=== PATIENT | female | born 1965 | race Caucasian/White ===

== ENCOUNTER → 2019-09-14 | Outpatient (CLI) | payer OTHER ==
--- NOTE | 2019-09-18 06:03 | PE ---
EXAMINATION TYPE: PET CT fusion skull to thigh DATE OF EXAM: 09/14/2019 COMPARISON: Outside chest CT August 31, 2019. HISTORY: Solitary pulmonary nodule left lung TECHNIQUE: Following the intravenous administration of 12.27 mCi of F-18 FDG, whole body images are performed from the skull base to the midthigh. Images are reviewed on the computer in the coronal, a xial, and sagittal planes. Reconstructed rotating images are created on independent workstation and reviewed on the computer. A noncontrast CT is performed in conjunction with the PET scan. SCAN: Initial Scan FINDINGS: SKULL BASE AND NECK: No areas of abnormal hypermetabolic uptake. CHEST, MEDIASTINUM, AND HILAR REGION: Redemonstration of 4 mm left upper lobe nodule laterally axial image 69 without hypermetabolic uptake. Stable size inferior 8 x 7 mm left upper lobe nodule that is ametabolic axial image 79. No areas of abnormal hypermetabolic uptake. ABDOMEN AND PELVIS: No areas of abnormal hypermetabolic uptake. OSSEOUS STRUCTURES: There is no abnormal hypermetabolic uptake. OTHER CT: Cholecystectomy clips are present. Coronary artery calcaneus is redemonstrated which is not ed marker for underlying coronary artery disease. Simple thin-walled cyst right hepatic lobe axial im age 89 noted. IMPRESSION: No suspicious hypermetabolic uptake to suggest malignancy. Short-term follow-up CT in 6-1 2 months time advised to document stability of lung nodules.
== END | disposition home or self-care (01) ==
LOC: RADPETMAIN 13:53
PROVIDERS: ATTEND Family Medicine
DX: R91.1 Solitary pulmonary nodule (principal)
CPT/HCPCS: 78815; A9552

== ENCOUNTER 2019-10-08 14:02 | Observation (INO) | payer OTHER ==
[2019-10-08] MEDS ORDERED: PANTOPRAZOLE 40 MG/10 ML VIAL IVP SCH (15:00)
[2019-10-08] MEDS: SODIUM CHLORIDE 0.9% 1,000 ML IV SCH (15:30)
[2019-10-08 15:46] LABS: Basophils # (A) 0.1 k/uL (0-0.2); Basophils % (A) 1 %; Eosinophils # (A) 0.1 k/uL (0-0.7); Eosinophils % (A) 1 %; HCT 35.8 % (34.0-46.0); HGB 12.3 gm/dL (11.4-16.0); Lymphocytes # (A) 2.4 k/uL (1.0-4.8); Lymphocytes % (A) 27 %; MCH 30.3 pg (25.0-35.0); MCHC 34.3 g/dL (31.0-37.0); MCV 88.3 fL (80.0-100.0); Mean Platelet Volume 8.1; Monocytes # (A) 0.9 k/uL (0-1.0); Monocytes % (A) 10 %; Neutrophils # (A) 5.4 k/uL (1.3-7.7); Neutrophils % (A) 61 %; Platelet Count 109 k/uL (150-450); RBC 4.06 m/uL (3.80-5.40); RDW 12.8 % (11.5-15.5); WBC 8.8 k/uL (3.8-10.6)
[2019-10-08] MEDS: HYDROmorphone 0.5 MG/0.5 ML SYRINGE IVP PRN ×2 (15:54→20:02)
[2019-10-08 16:01] LABS: African American GFR (CKD) >90 (>60 ml/min/1.73 sqM); Anion Gap 7 mmol/L; Blood Urea Nitrogen 23 mg/dL (7-17); Calcium 10.1 mg/dL (8.4-10.2); Carbon Dioxide 26 mmol/L (22-30); Chloride 106 mmol/L (98-107); Glucose 89 mg/dL (74-99); Non-African American GFR(CKD) >90 (>60 ml/min/1.73 sqM); Potassium 3.8 mmol/L (3.5-5.1); Sodium 139 mmol/L (137-145)
[2019-10-08 16:14] LABS: Hypochromasia (M) Present
[2019-10-08] MEDS: CYCLOBENZAPRINE 10 MG TAB PO PRN (16:58)
[2019-10-08] MEDS: ALPRAZolam 0.25 MG TAB PO PRN (20:02)
[2019-10-08] MEDS: AMITRIPTYLINE HCL 10 MG TAB PO SCH (21:15)
[2019-10-09] MEDS ORDERED: HYDROmorphone 0.5 MG/0.5 ML SYRINGE ONE ×2 (00:37)
[2019-10-09] MEDS: methylPREDNISolone SOD SUCCI 40 MG/ML 1 ML VIAL IV SCH ×3 (05:35→15:50)
--- NOTE | 2019-10-09 06:05 | XR ---
EXAM: XR Lumbosacral Spine, 2 or 3 Views CLINICAL HISTORY: Lumbar DDD TECHNIQUE: Frontal and lateral views of the lumbar spine and sacrum. COMPARISON: No relevant prior studies available. FINDINGS: Vertebrae: Unremarkable. No acute fracture. Normal alignment. Sacrum/coccyx: Unremarkable as visualized. No acute fracture. Disc spaces: No acute findings. No significant narrowing. Soft tissues: Unremarkable. IMPRESSION: Normal lumbar spine x-rays.
--- NOTE | 2019-10-09 06:07 | CT ---
EXAM: CT Abdomen and Pelvis Without Intravenous Contrast CLINICAL HISTORY: Patient presents with RLQ pain. TECHNIQUE: Axial computed tomography images of the abdomen and pelvis without intravenous contrast. CTDI is 4.5 mGy and DLP is 222.1 mGy-cm. This CT exam was performed using one or more of the following dose reduction techniques: automated exposure control, adjustment of the mA and/or kV according to patient size, and/or use of iterative reconstruction technique. COMPARISON: No relevant prior studies available. FINDINGS: Lung bases: Unremarkable. No mass. No consolidation. ABDOMEN: Liver: Unremarkable. Gallbladder and bile ducts: Gallbladder surgically absent. No calcified stones. No ductal dilation. Pancreas: Unremarkable. No ductal dilation. Spleen: Unremarkable. No splenomegaly. Adrenals: Unremarkable. No mass. Kidneys and ureters: Unremarkable. No obstructing stones. No hydronephrosis. Stomach and bowel: Unremarkable. No obstruction. No mucosal thickening. PELVIS: Appendix: No findings to suggest acute appendicitis. Bladder: Unremarkable. No stones. Reproductive: Unremarkable as visualized. ABDOMEN and PELVIS: Intraperitoneal space: Unremarkable. No free air. No significant fluid collection. Bones/joints: No acute fracture. No dislocation. Soft tissues: Unremarkable. Vasculature: Unremarkable. No abdominal aortic aneurysm. Lymph nodes: Unremarkable. No enlarged lymph nodes. IMPRESSION: No acute abnormality demonstrated in the abdomen or pelvis
[2019-10-09] MEDS: MULTIVITAMINS, THERA 1 EACH TAB PO SCH ×2 (08:28→08:35)
[2019-10-09] MEDS: LACTOBACILLUS ACIDOPH & BULGAR 1 EACH PACKET PO SCH ×2 (08:28→08:35)
[2019-10-09] MEDS: TERBINAFINE 250 MG TAB PO SCH (08:28)
[2019-10-09] MEDS: PANTOPRAZOLE 40 MG TABLET PO SCH (08:28)
[2019-10-09] MEDS: HYDROmorphone 0.5 MG/0.5 ML SYRINGE IVP PRN ×4 (08:29→20:46)
[2019-10-09] MEDS ORDERED: NON FORMULARY DRUG (Biotin [Biotin] 5 MG) PO SCH (09:00)
--- NOTE | 2019-10-09 09:14 | P.CNOR ---
History of Present Illness - [facility] Consult date: 10/09/19 Requesting physician: Pito Quinn Consult reason: low back pain, other (Right lower extremity radiculopathy) History of present illness: Patient is a very pleasant 53-year-old female who is seen and examined at bedside for further evaluation for intractable low back pain and right lower extremity radiculopathy. She was direct admitted by her primary care provider Dr. Pito Quinn. Patient states approximately week and a half ago she began to experience some increased back pain with right lower extremity radiculopathy. She states she has a history of previous laminectomy performed by Dr. Allen approximately 6 years ago but is unsure of the level. She states the pain she currently feels is significantly worse than the pain she was experiencing prior to that surgical intervention. She states she tried using a lidocaine patch couple days ago for pain control which did help control her pain while active but she increased activities at that time further exacerbating her symptoms. She states she does have some sensitivity to palpation over her lumbar spine. She has pain radiating from the lumbar spine, towards the right hip, down the lateral thigh towards the right knee. She feel some weakness due to pain in her right lower extremity. She also feels some pain radiating to his right groin. She states she has only voided once in the past 48 hours. She is on IV fluids. She is not experiencing significant abdominal pain or bladder pain. She has not recently had a bowel movement. She denies any left lower extremity weakness or radiculopathy. Patient states she did recently have a PET scan performed due to left upper lobe lung nodule. No evidence of metastatic disease was found at that time. She states her currently planning to watch the nodule follow-up evaluation approximate 4-6 months. She feels she may seek further evaluation in regards to this nodule as she may want it removed. Past Medical History Past Medical History: GERD/Reflux, Hyperlipidemia Additional Past Medical History / Comment(s): recent PET scan History of Any Multi-Drug Resistant Organisms: None Reported Past Surgical History: Cholecystectomy, Hysterectomy, Orthopedic Surgery Additional Past Surgical History / Comment(s): bilateral breast lumps removed- benign, knee surgery, back surgery Past Anesthesia/Blood Transfusion Reactions: No Reported Reaction Past Psychological History: No Psychological Hx Reported Smoking Status: Never smoker Medications and Allergies Home Medications Medication Instructions Recorded Confirmed Type ALPRAZolam [Xanax] 0.25 mg PO BID PRN 10/08/19 10/08/19 History Amitriptyline HCl [Elavil] 10 mg PO HS 10/08/19 10/08/19 History Biotin 5 mg PO DAILY 10/08/19 10/08/19 History Cyclobenzaprine [Flexeril] 10 mg PO BID PRN 10/08/19 10/08/19 History L.acidoph,Paracasei, B.lactis 1 cap PO DAILY 10/08/19 10/08/19 History [Probiotic] Multivitamins, Thera [Multivitamin 1 tab PO DAILY 10/08/19 10/08/19 History (formulary)] Omeprazole 40 mg PO DAILY 10/08/19 10/08/19 History Terbinafine [LamISIL] 250 mg PO DAILY 10/08/19 10/08/19 History traMADol HCL 50 mg PO DAILY PRN 10/08/19 10/08/19 History Allergies Allergy/AdvReac Type Severity Reaction Status Date / Time Penicillins Allergy Rash/Hives Verified 10/08/19 15:15 Physical Examination Physical exam: Patient is awake, alert, and oriented 3 Vital signs stable Good chest excursion with deep inspiration and expiration Abdomen soft nontender Examination of lumbar spine reveals skin is intact with no abrasions, lacerations, or bruises; no erythema, purulence or signs of infection Significant pain with palpation over the lower lumbar spine and towards the right hip Evidence of a small well-healed incision of the lower lumbar spine Dorsiflexion, plantarflexion, and extensor hallucis longus positive sustained bilaterally Active forward range of motion left lower extremity without difficulty Increased low back pain with dorsiflexion and plantarflexion on the right No lower extremity hyperreflexia bilaterally Positive Lasegue's test on the right No signs or symptoms of DVT; no calf pain No pain with internal and external rotation of the hips bilaterally Neurovascularly intact Results Pertinent studies: X-rays of the lumbosacral spine taken on 10/08/2019: Overall alignment appears to maintain; no evidence of fracture dislocation within the lumbar spine; no evidence of instability or spondylolisthesis; intervertebral disc space appears to be fairly well maintained CT of the abdomen and pelvis reviewed for orthopedic purposes taken on 10/08/2019: There may be evidence of disc herniation at L3-4 and/or L4-5 resulting in foraminal and central stenosis but would be better visualized with alumbar MRI; Overall alignment appears to maintain; no evidence of fracture or dislocation within the lumbar spine; no evidence of instability or spondylolisthesis; intervertebral disc space appears to be fairly well maintained other than L4-5 asymmetric degenerative disc PET scan performed on 09/17/2019: No suspicious her metabolic uptake to suggest malignancy; short-term follow-up CT in 6-12 months advised to document stability of lung nodules - Labs Labs: Abnormal Lab Results - Last 24 Hours (Table) 10/08/19 10/08/19 Range/Units 15:25 15:25 Plt Count 109 L (150-450) k/uL BUN 23 H (7-17) mg/dL H & H 10/08/19 Range/Units 15:25 Hgb 12.3 (11.4-16.0) gm/dL Hct 35.8 (34.0-46.0) % Result Diagrams: 10/08/19 15:25 10/08/19 15:25 Assessment and Plan Assessment: Assessment: Intractable back pain Right lower extremity radiculopathy L4-5 asymmetric degenerative disc disease L3-4 and L4-5 possible herniated nucleus pulposus with central canal and neural foraminal stenosis History of previous lumbar surgery Possible urinary retention Left upper lobe lung nodules (1) Intractable low back pain Current Visit: Yes Status: Acute Code(s): M54.5 - LOW BACK PAIN SNOMED Code(s): 71861150611151516 (2) Lumbar back pain with radiculopathy affecting right lower extremity Current Visit: Yes Status: Acute Code(s): M54.16 - RADICULOPATHY, LUMBAR REGION SNOMED Code(s): 055488573 (3) History of lumbar surgery Current Visit: Yes Status: Acute Code(s): Z98.890 - OTHER SPECIFIED POSTPROCEDURAL STATES SNOMED Code(s): 838214941 (4) Lung nodules Current Visit: Yes Status: Acute Code(s): R91.8 - OTHER NONSPECIFIC ABNORMAL FINDING OF LUNG FIELD SNOMED Code(s): 776157183 (5) Urinary retention Current Visit: Yes Status: Acute Code(s): R33.9 - RETENTION OF URINE, UNSPECIFIED SNOMED Code(s): 663648227 (6) Lumbar disc herniation with radiculopathy Current Visit: Yes Status: Acute Code(s): M51.16 - INTERVERTEBRAL DISC DISORDERS W RADICULOPATHY, LUMBAR REGION SNOMED Code(s): 274978190 (7) Lumbar degenerative disc disease Current Visit: Yes Status: Acute Code(s): M51.36 - OTHER INTERVERTEBRAL DISC DEGENERATION, LUMBAR REGION SNOMED Code(s): 01490801 Plan: Plan: 1. After physical examination the patient, further discussion with the patient, and reviewing available imaging, we'll currently planned to obtain an MRI of lumbar spine with and without contrast for further evaluation. Patient does have a history of previous lumbar surgery. She's been experiencing intractable low back pain and debilitating right lower extremity radiculopathy over the past week and a half. She has increased weakness with right lower extremity due to pain. She has also had difficulty with urination with past 48 hours. We will order the lumbar MRI and will follow up with his results and discuss further treatment options. 2. We'll also plan for bladder scan to check for residual urine as patient is currently receiving IV fluid bolus and has only urinated once over the past 48 hours 3. Patient currently waiting for consultation pain management Time with Patient: Greater than 30 (Including obtaining history, physical examin ation, reviewing of imaging, and dictation.)
[2019-10-09] MEDS: ALPRAZolam 0.25 MG TAB PO PRN ×2 (10:35→20:46)
[2019-10-09] MEDS: CYCLOBENZAPRINE 10 MG TAB PO PRN (11:28)
[2019-10-09 12:32] LABS: ALT 22 U/L (9-52); AST 23 U/L (14-36); African American GFR (CKD) >90 (>60 ml/min/1.73 sqM); Albumin 4.1 g/dL (3.5-5.0); Alkaline Phosphatase 41 U/L (38-126); Anion Gap 9 mmol/L; Blood Urea Nitrogen 27 mg/dL (7-17); Calcium 9.7 mg/dL (8.4-10.2); Carbon Dioxide 24 mmol/L (22-30); Chloride 107 mmol/L (98-107); Glucose 114 mg/dL (74-99); Non-African American GFR(CKD) >90 (>60 ml/min/1.73 sqM); Potassium 4.2 mmol/L (3.5-5.1); Sodium 140 mmol/L (137-145); Total Bilirubin 0.5 mg/dL (0.2-1.3); Total Protein 6.8 g/dL (6.3-8.2)
[2019-10-09 12:43] LABS: Basophils % (A) 0 %; Eosinophils % (A) 0 %; HCT 38.5 % (34.0-46.0); HGB 12.8 gm/dL (11.4-16.0); Lymphocytes # (A) 0.8 k/uL (1.0-4.8); Lymphocytes % (A) 10 %; MCH 30.1 pg (25.0-35.0); MCHC 33.1 g/dL (31.0-37.0); MCV 90.7 fL (80.0-100.0); Monocytes # (A) 0.1 k/uL (0-1.0); Monocytes % (A) 2 %; Neutrophils # (A) 7.4 k/uL (1.3-7.7); Neutrophils % (A) 87 %; Platelet Count 213 k/uL (150-450); RBC 4.25 m/uL (3.80-5.40); RDW 12.9 % (11.5-15.5); WBC 8.5 k/uL (3.8-10.6)
--- NOTE | 2019-10-09 12:57 | HP ---
HISTORY AND PHYSICAL A 53-year-old white female admitted with a retractable low back pain, right lower extremity radiculopathy, unable to move her right leg. She is crying. She is in severe pain, 10/10. She has history of a previous laminectomy about [address] Allen[address] She is unable to control her pain, despite pain medications and she is unable to move. She is in a wheelchair. She is crying. She has lung nodules with a negative PET scan recently. PAST MEDICAL HISTORY: GERD, dyslipidemia, lumbar discectomy, benign breast disease, back surgery. HOME MEDICINES: She takes Xanax 0.25 b.i.d., Elavil 10 q.h.s., Flexeril 10 b.i.d., multivitamins, omeprazole 40 daily, Lamisil 250 daily, tramadol 50 daily. ALLERGIES: PENICILLIN. PHYSICAL EXAM: Vital signs are reviewed. PSYCH: She is anxious, nervous, crying. LUNGS: Show mild wheeze x4. CARDIOVASCULAR: S1, S2. She has positive straight leg raise test on the right side and the left side. She has hyper-reflexividity bilaterally. X-rays are ordered of the CT scan of the abdomen and pelvis were ordered for right lower quadrant abdominal pain, which were all negative. PET scan was all normal. Also, labs were reviewed. ASSESSMENT: Irretractable back pain, right lower extremity radiculopathy, L4-L5 degenerative disc disease with possible herniated disc. MRI is pending. Previous lumbar surgery, left upper lobe lung nodules, benign, nicotine addiction, urinary retention, anxiety, await for epidural lumbar injection [facility] for lumbar injections prior to going home. Please see further orders. MMODL / IJN: [id number] /
--- NOTE | 2019-10-09 14:56 | MR ---
EXAMINATION TYPE: MR lumbar spine wo/w con DATE OF EXAM: 10/09/2019 COMPARISON: Plain film 10/08/2019 HISTORY: intractable LBP, right LE radiculopathy TECHNIQUE: Multiplanar, multisequence images of the lumbar spine were acquired utilizing 5.5 mL intravenous Gada vist gadolinium contrast. L1-L2: Normal disc appearance without desiccation. No herniation, protrusion or disc bulging. No ca nal stenosis is present. Foramina are patent bilaterally. L2-L3: Normal disc appearance without desiccation. No herniation, protrusion or disc bulging. No ca nal stenosis is present. Foramina are patent bilaterally. L3-L4: Circumferential posterior disc bulge causes anterior mass effect on the thecal sac. No signifi cant foraminal encroachment. L4-L5: There is a focus of intermediate signal on T1, low signal on T2-weighted sequences in the righ t posterior paracentral location causing anterior mass effect on the thecal sac at the level of the i nferior aspect of the L4 vertebral body perhaps extending from the disc space level. Some peripheral enhancement is present following contrast administration with persistent intermediate low signal at t his level. Possible mass effect on the proximal right nerve root. Circumferential disc bulge extends laterally to cause some minimal encroachment on the foramina. Mild anterior mass effect on the thecal sac at the level of the disc space. There is some facet arthropathy change. L5-S1: There are facet arthropathy changes present. No evident disc herniation. No neural foraminal e ncroachment. Lumbar segments are intact. No paraspinal masses are identified. Conus medullaris has a normal appe arance. There is multilevel spondylosis. No significant spinal stenosis. Lumbar vertebral bodies show preserved height and alignment. There is endplate marrow signal change, loss of disc height signal i s present greatest at L4-5 also present at L3-4. Suspect partial sacralization L5. IMPRESSION: Suspect a sequestered disc fragment is present posterior to the L4 vertebral body inferior aspect pos sibly extending from the L4-5 disc space, correlate with plain film prior to any intervention. There is multilevel facet arthropathy, degenerative disc disease as described.
[2019-10-09 18:47] LABS: Appearance,Urine Clear (Clear); Bilirubin,Urine Negative (Negative); Blood,Urine Negative (Negative); Color,Urine Yellow; Glucose,Urine (UA) Negative (Negative); Hyaline Casts,Urine 1 /lpf (0-2); Ketones,Urine Negative (Negative); Leukocyte Esterase,Urine Large (Negative); Mucus,Urine Rare /hpf; Nitrite,Urine Negative (Negative); PH, Urine 6.5 (5.0-8.0); Protein,Urine Negative (Negative); RBC,Urine 1 /hpf (0-5); Specific Gravity,Urine 1.026 (1.001-1.035); Squamous Epithelial Cell,Urine 4 /hpf (0-4); Urobilinogen,Urine <2.0 mg/dL (<2.0); WBC,Urine 22 /hpf (0-5)
[2019-10-09] MEDS: SODIUM CHLORIDE 0.9% 1,000 ML IV SCH (20:48)
[2019-10-09] MEDS: LEVOFLOXACIN 500 MG TAB PO SCH ×2 (21:47→21:48)
[2019-10-09] MEDS: traMADol 50 MG TAB PO PRN (22:32)
[2019-10-10] MEDS: AMITRIPTYLINE HCL 10 MG TAB PO SCH ×2 (00:25→20:34)
[2019-10-10] MEDS: methylPREDNISolone SOD SUCCI 40 MG/ML 1 ML VIAL IV SCH ×4 (01:34→23:45)
[2019-10-10] MEDS: CYCLOBENZAPRINE 10 MG TAB PO PRN (02:29)
[2019-10-10] MEDS: HYDROmorphone 0.5 MG/0.5 ML SYRINGE IVP PRN ×3 (02:30→06:14)
[2019-10-10] MEDS: METOCLOPRAMIDE 5 MG/ML 2 ML VIAL IVP PRN ×3 (06:42→20:39)
[2019-10-10] MEDS: SODIUM CHLORIDE 0.9% 1,000 ML IV SCH (06:44)
[2019-10-10] MEDS: MULTIVITAMINS, THERA 1 EACH TAB PO SCH (08:57)
[2019-10-10] MEDS: PANTOPRAZOLE 40 MG TABLET PO SCH (08:57)
[2019-10-10] MEDS: TERBINAFINE 250 MG TAB PO SCH (08:58)
[2019-10-10] MEDS: LACTOBACILLUS ACIDOPH & BULGAR 1 EACH PACKET PO SCH (08:58)
[2019-10-10] MEDS: HYDROmorphone 1 MG/ML 1 ML SYRINGE IVP PRN ×4 (10:45→22:23)
[2019-10-10 11:35] LABS: Glucose,Whole Blood 125 mg/dL (75-99)
[2019-10-10] MEDS: INSULIN ASPART (NovoLOG) 100 UNIT/ML VIAL SQ SCH ×3 (12:48→20:34)
--- NOTE | 2019-10-10 13:39 | US ---
EXAMINATION TYPE: US renals and bladder DATE OF EXAM: 10/10/2019 COMPARISON: MRI lumbar spine from yesterday. CT abdomen and pelvis 2 days ago. CLINICAL HISTORY: back pain, uti . Right flank pain. Patient states just being diagnosed with renal infection. EXAM MEASUREMENTS: Right Kidney: 10.2 x 4.8 x 3.4 cm Left Kidney: 9.2 x 4.8 x 4.9 cm Right Kidney: No hydronephrosis or masses seen Left Kidney: No hydronephrosis or masses seen Bladder: distended, anechoic Bilateral Jets seen There is no evidence for hydronephrosis at this point in time. No nephrolithiasis is seen. No trey s are identified. Slight increased cortical echogenicity bilaterally. The urinary bladder is satisfac torily distended. Bilateral ureteral jets are seen. IMPRESSION: No hydronephrosis or suspicious abnormality.
--- NOTE | 2019-10-10 14:48 | P.PN ---
<Leonides Gastelum - Last Filed: 10/10/19 14:41> Progress Note - Text Progress Note Date: 10/10/19 Patient is a very pleasant 53-year-old female who is seen and examined at bedside for follow-up evaluation for intractable low back pain and right lower extremity radiculopathy. Since being seen and examined yesterday she has had an MRI of lumbar spine. This MRI has been reviewed by myself and Dr. Vahe Cardoso. She was direct admitted by her primary care provider Dr. Pito Quinn. Patient states approximately week and a half ago she began to experience some increased back pain with right lower extremity radiculopathy. She states she has a history of previous laminectomy performed by Dr. Allen approximately 6 ye ars ago but is unsure of the level. Since being seen exam yesterday, she has not had any significant improvement of her symptoms. She states the pain she currently feels is significantly worse than the pain she was experiencing prior to that surgical intervention. She states she tried using a lidocaine patch couple days ago for pain control which did help control her pain while active but she increased activities at that time further exacerbating her symptoms. She states she does have some sensitivity to palpation over her lumbar spine. She has pain radiating from the lumbar spine, towards the right hip, down the lateral thigh towards the right knee. She is experiencing right-sided flank pain as well. She feel some weakness due to pain in her right lower extremity. She also feels some pain radiating to his right groin. She has had some difficulty with voiding. She has been diagnosed with urinary tract infection and is currently on Levaquin. She states she is currently having further evaluation for possible kidney infection. She denies any left lower extremity weakness or radiculopathy. Patient states she did recently have a PET scan performed due to left upper lobe lung nodule. No evidence of metastatic disease was found at that time. She states her currently planning to watch the nodule follow-up evaluation approximate 4-6 months. She feels she may seek further evaluation in regards to this nodule as she may want it removed. Physical exam: Patient is awake, alert, and oriented 3 Vital signs stable Good chest excursion with deep inspiration and expiration Abdomen soft nontender Examination of lumbar spine reveals skin is intact with no abrasions, lacerations, or bruises; no erythema, purulence or signs of infection Significant pain with palpation over the lower lumbar spine and towards the right hip Evidence of a small well-healed incision of the lower lumbar spine Dorsiflexion, plantarflexion, and extensor hallucis longus positive sustained bilaterally Active forward range of motion left lower extremity without difficulty Increased low back pain with dorsiflexion and plantarflexion on the right No lower extremity hyperreflexia bilaterally Positive Lasegue's test on the right No signs or symptoms of DVT; no calf pain No pain with internal and external rotation of the hips bilaterally Neurovascularly intact Pertinent studies: MRI lumbar spine taken with and without contrast on 10/09/2019: L3-4 circumferential disc bulge; L4-5 right paracentral disc herniation with some ce phalad migration behind the L4 vertebral body, degenerative disc disease and facet arthropathy resulting in anterior mass effect of the thecal sac and possible mass effects on the proximal right nerve root; L5-S1 facet arthropathy; no evidence of significant spinal canal stenosis; no evidence of vertebral body compression fracture; X-rays of the lumbosacral spine taken on 10/08/2019: Overall alignment appears to maintain; no evidence of fracture dislocation within the lumbar spine; no evidence of instability or spondylolisthesis; intervertebral disc space appears to be fairly well maintained CT of the abdomen and pelvis reviewed for orthopedic purposes taken on 10/08/2019: There may be evidence of disc herniation at L3-4 and/or L4-5 resul ting in foraminal and central stenosis but would be better visualized with alumbar MRI; Overall alignment appears to maintain; no evidence of fracture or dislocation within the lumbar spine; no evidence of instability or spondylolisthesis; intervertebral disc space appears to be fairly well maintained other than L4-5 asymmetric degenerative disc PET scan performed on 09/17/2019: No suspicious her metabolic uptake to suggest malignancy; short-term follow-up CT in 6-12 months advised to document stability of lung nodules Assessment: Intractable back pain Right lower extremity radiculopathy L4-5 right paracentral disc herniation Lumbar facet arthropathy L4-5 asymmetric degenerative disc disease History of previous lumbar surgery Possible urinary retention Left upper lobe lung nodules Right flank pain Urinary tract infection Plan: 1. After physical examination the patient, further discussion with the patient, and reviewing available imaging, we'll currently plan to continue conservative treatment at this time. She does have a right paracentral disc herniation at L4-5 that correlates with some of her symptoms but not all of her symptoms. She has been seen and examined by pain management as well who are not currently planning for injections or other pain management treatment options. It seems at this time most of her symptoms are stemming primarily in regards to her urinary tract infection and possible kidney infection. She is being seen and examined by medicine and is currently on Levaquin. At this time we're not currently planning for any acute surgical intervention in regards to her lumbar spine. We'll plan to have her continue with conservative treatment options. She'll be cleared for discharge from an orthopedic spine standpoint. If her symptoms are not improving in regards to her right lower extremity radiculopathy symptoms, she may plan to follow back up with pain management at that time and may plan to proceed forward with injections if needed. We discussed she should exhaust conservative treatment options before discussing the possibility of surgical intervention. Patient feels is a good plan of care. At this time, patient is clear for discharge from orthopedic spine standpoint. Patient will follow up in approximately 3 weeks for further evaluation. She may follow-up with Leonides Gastelum PA-C or Dr. Vahe Cardoso at [facility]. 2. Patient will continue to be seen and examined by medicine for further treatment and evaluation regards to her other medical diagnoses including urinary tract infection possible kidney infection <Mohini Cardoso - Last Filed: 10/10/19 14:50> Progress Note - Text The patient is seen and examined at bedside. I reviewed the imaging as well as MRI and the prior notes and I am in agreement. She is currently being worked up further regards to possible kidney infection and pain with that. She does have a disc herniation at L4 5 but this does not seem to correlate specifically with her symptoms well and I would plan to hold off on any plan for surgical in tervention at this point. I think that she can have further improvement with conservative treatment and the possibility of pain management. If she is not having improvement we would like to follow her up on an outpatient basis and consider further treatment options. I discussed this with her and she is agreeable.
--- NOTE | 2019-10-10 15:50 | P.PAINCN ---
History of Present Illness - Reason for Consult Consult date: 10/10/19 - History of Present Illness This is a 53-year-old patient referred by Dr. Quinn with a chief complaint of acute pain in right flank, radiating to right groin and right lateral thigh. Pain started approximately 2 weeks ago. Other symptoms at the time included excessive urination, cloudy yellowish malodorous urine, excessive fatigue and "running hot and cold", chills, vomiting. She was evaluated in the emergency room at [facility] and a computed tomography scan was done and she was instructed to follow-up with her primary care physician. She saw Dr. Quinn in clinic on Tuesday, and was admitted to the hospital. She has been diagnosed with a urinary tract infection and is on antibiotics for this, this was started today. Her current pain medications medications include Dilaudid when necessary, Flexeril. Patient denies adverse drug effects from medications. Patient does endorse subjective right lower extremity weakness, she denies bowel/bladder incontinence, although she has urinated only once or twice the past 24-48 hours and has not had a bowel movement The patient says that in the past, she has had a pinched nerve in her low back, and this pain is completely different from the pain at that time. She has had lumbar surgery approximately 6 years ago, patient does not recall levels that were done. Review of systems is negative for chest pain, numbness/tingling, abdominal pain, malaise, fever, homicidal or suicidal ideation, or bowel or bladder incontinence. Past Medical History Past Medical History: GERD/Reflux, Hyperlipidemia Additional Past Medical History / Comment(s): recent PET scan History of Any Multi-Drug Resistant Organisms: None Reported Past Surgical History: Cholecystectomy, Hysterectomy, Orthopedic Surgery Additional Past Surgical History / Comment(s): bilateral breast lumps removed-benign, knee surgery, back surgery Past Anesthesia/Blood Transfusion Reactions: No Reported Reaction Past Psychological History: No Psychological Hx Reported Smoking Status: Never smoker Medications and Allergies Home Medications Medication Instructions Recorded Confirmed Type ALPRAZolam [Xanax] 0.25 mg PO BID PRN 10/08/19 10/08/19 History Amitriptyline HCl [Elavil] 10 mg PO HS 10/08/19 10/08/19 History Biotin 5 mg PO DAILY 10/08/19 10/08/19 History Cyclobenzaprine [Flexeril] 10 mg PO BID PRN 10/08/19 10/08/19 History L.acidoph,Paracasei, B.lactis 1 cap PO DAILY 10/08/19 10/08/19 History [Probiotic] Multivitamins, Thera [Multivitamin 1 tab PO DAILY 10/08/19 10/08/19 History (formulary)] Omeprazole 40 mg PO DAILY 10/08/19 10/08/19 History Terbinafine [LamISIL] 250 mg PO DAILY 10/08/19 10/08/19 History traMADol HCL 50 mg PO DAILY PRN 10/08/19 10/08/19 History Allergies Allergy/AdvReac Type Severity Reaction Status Date / Time Penicillins Allergy Rash/Hives Verified 10/08/19 15:15 Physical Exam Vitals: Vital Signs Temp Pulse Resp BP BP Pulse Ox 10/10/19 12:20 100 18 10/10/19 08:00 100 18 10/10/19 07:51 97.3 F L 100 18 130/82 99 10/09/19 23:53 97.9 F 82 18 116/68 97 10/09/19 23:13 18 10/09/19 19:15 18 10/09/19 16:00 99 18 10/09/19 15:41 97.7 F 99 135/86 90 L Intake and Output 10/10/19 10/10/19 10/10/19 06:59 14:59 22:59 Intake Total 200 Output Total 100 200 100 Balance -100 0 -100 Intake: Other 200 Output: Urine 100 200 100 Other: Voiding Method Toilet # Voids 1 GENERAL: Ill appearing PSYCH: Mood and affect is appropriate. Awake, alert, and oriented SKIN: Skin color, texture, turgor normal, no rashes or lesions HEENT: Normocephalic, atraumatic. EOM intact CV: No pedal edema RESP: Respirations are unlabored, no audible wheezing GI: Abdomen non-distended MUSCULOSKELETAL: Bilateral lower extremity strength is normal and symmetric. No atrophy or tone abnormalities are noted. Lumbar spine: Straight leg raising in the sitting position is negative for radicular pain. Tenderness to palpation over the lumbar spine and paraspinous muscles on the right side. Extremities: Peripheral joint ROM is full and pain free without obvious instability or laxity in all four extremities. No edema or skin discolorations noted. NEUR: Cranial nerves are grossly intact. Results Results: Imaging: MRI lumbar spine done 10/09/2019 at [facility] shows L4 5 disc herniation with some peripheral enhancement and possible mass effect on the proximal right nerve root. Multilevel facet arthropathy, degenerative disc disease. CBC & Chem 7: 10/09/19 11:53 10/09/19 11:53 Labs: Abnormal Lab Results - Last 24 Hours (Table) 10/09/19 10/10/19 Range/Units 18:16 11:30 POC Glucose (mg/dL) 125 H (75-99) mg/dL Ur Leukocyte Esterase Large H (Negative) Urine WBC 22 H (0-5) /hpf Urine Mucus Rare H (None) /hpf Microbiology - Last 24 Hours (Table) 10/09/19 18:16 Urine Culture - Preliminary Urine,Voided Assessment and Plan Assessment: Assessment: 1. Lumbar spondylosis, lumbar degenerative disc disease 2. Urinary tract infection, currently on antibiotics Plan: Plan: 1. Explanation: We had a lengthy discussion regarding her symptoms and etiology of symptoms. Pain description and associated symptoms including chills, vomiting, urinary frequency, cloudy urine are unlikely to be related to degenerative disc disease and lumbar spinal pathology, although she does seem to have some L4 disc pathology. If symptoms do not resolve following treatment of acute UTI, I offered to see her in our pain clinic to evaluate her for possible interventional pain management which would likely be a right-sided lumbar transforaminal epidural steroid injection at L4-5 2. Procedures: None at this time, if patient still has pain following UTI resolution we would schedule a right TF SINDI at L4-5 3. Investigations: MRI lumbar spine reviewed 4. Medications: Per primary team Thank you for allowing us to participate in the care of this patient. If pain persists, we will be happy to see her in the pain clinic for possible interventional pain management. Please contact us with questions or concerns PQRS Measure Charge Sheet PQRS Narrative: Smoking Status Never smoker Blood Pressure [Right Arm] 130/82 Blood Pressure [Left Arm] 116/68 Pain Intensity [Back] 10 Pain Intensity 9 Pain Scale Used Numeric (1 - 10) Scale Used Numeric (1 - 10) Home Medications: Ambulatory Orders ALPRAZolam [Xanax] 0.25 mg PO BID PRN 10/08/19 Amitriptyline HCl [Elavil] 10 mg PO HS 10/08/19 Biotin 5 mg PO DAILY 10/08/19 Cyclobenzaprine [Flexeril] 10 mg PO BID PRN 10/08/19 L.acidoph,Paracasei, B.lactis [Probiotic] 1 cap PO DAILY 10/08/19 Multivitamins, Thera [Multivitamin (formulary)] 1 tab PO DAILY 10/08/19 Omeprazole 40 mg PO DAILY 10/08/19 Terbinafine [LamISIL] 250 mg PO DAILY 10/08/19 traMADol HCL 50 mg PO DAILY PRN 10/08/19
[2019-10-10 16:43] LABS: Glucose,Whole Blood 121 mg/dL (75-99)
[2019-10-10] MEDS: ALPRAZolam 0.25 MG TAB PO PRN (18:42)
[2019-10-10] MEDS: TAMSULOSIN 0.4 MG CAP.ER.24H PO SCH (18:42)
[2019-10-10 20:23] LABS: Glucose,Whole Blood 156 mg/dL (75-99)
[2019-10-10] MEDS: traMADol 50 MG TAB PO PRN (20:35)
[2019-10-10] MEDS ORDERED: ZOLPIDEM 5 MG TAB PO SCH (21:00)
[2019-10-11] MEDS: HYDROmorphone 1 MG/ML 1 ML SYRINGE IVP PRN ×6 (02:20→23:53)
[2019-10-11] MEDS: METOCLOPRAMIDE 5 MG/ML 2 ML VIAL IVP PRN ×4 (02:20→20:14)
--- NOTE | 2019-10-11 04:51 | P.CONS ---
History of Present Illness - Reason for Consult Consult date: 10/10/19 Urinary tract infection/pyelonephritis Requesting physician: Pito Quinn - Chief Complaint Back pain x few days - History of Present Illness Patient is a 53-year-old female who has been admitted directly to the hospital for the primary care physician for intractable low back pain and currently has been going on for about a week with no history of any trauma pain is in the lower back excruciating intensity of almost 10 out of 10 and some radiation to the right leg patient did have some associated intermittent retention patient workup so far including a CT of abdominal pelvis that was negative and MRI of the lumbar spine shows right paracentral disc herniation at L4 5 level and is currently managed by orthopedic services, patient also complaining of urinary frequency no significant burning and some pain in the right flank area she did have a UA today shows large leukocyte esterase, 22 WBC with the cultures currently pending, patient has been started on oral Levaquin because of penicillin ALLERGY infectious disease was consulted for further recommendation regarding antibiotic therapy Review of Systems Positive point has been mentioned in the HPI rest of the systems are negative Past Medical History Past Medical History: GERD/Reflux, Hyperlipidemia Additional Past Medical History / Comment(s): recent PET scan History of Any Multi-Drug Resistant Organisms: None Reported Past Surgical History: Cholecystectomy, Hysterectomy, Orthopedic Surgery Additional Past Surgical History / Comment(s): bilateral breast lumps removed- benign, knee surgery, back surgery Past Anesthesia/Blood Transfusion Reactions: No Reported Reaction Past Psychological History: No Psychological Hx Reported Smoking Status: Never smoker Medications and Allergies Home Medications Medication Instructions Recorded Confirmed Type ALPRAZolam [Xanax] 0.25 mg PO BID PRN 10/08/19 10/08/19 History Amitriptyline HCl [Elavil] 10 mg PO HS 10/08/19 10/08/19 History Biotin 5 mg PO DAILY 10/08/19 10/08/19 History Cyclobenzaprine [Flexeril] 10 mg PO BID PRN 10/08/19 10/08/19 History L.acidoph,Paracasei, B.lactis 1 cap PO DAILY 10/08/19 10/08/19 History [Probiotic] Multivitamins, Thera [Multivitamin 1 tab PO DAILY 10/08/19 10/08/19 History (formulary)] Omeprazole 40 mg PO DAILY 10/08/19 10/08/19 History Terbinafine [LamISIL] 250 mg PO DAILY 10/08/19 10/08/19 History traMADol HCL 50 mg PO DAILY PRN 10/08/19 10/08/19 History Allergies Allergy/AdvReac Type Severity Reaction Status Date / Time Penicillins Allergy Rash/Hives Verified 10/08/19 15:15 Physical Exam Vitals: Vital Signs Temp Pulse Resp BP BP Pulse Ox 10/10/19 12:20 100 18 10/10/19 08:00 100 18 10/10/19 07:51 97.3 F L 100 18 130/82 99 10/09/19 23:53 97.9 F 82 18 116/68 97 10/09/19 23:13 18 10/09/19 19:15 18 10/09/19 16:00 99 18 10/09/19 15:41 97.7 F 99 135/86 90 L Intake and Output 10/10/19 10/10/19 10/10/19 06:59 14:59 22:59 Intake Total 200 Output Total 100 200 100 Balance -100 0 -100 Intake: Other 200 Output: Urine 100 200 100 Other: Voiding Method Toilet # Voids 1 GENERAL DESCRIPTION: Middle-aged female lying in bed, no distress. No tachypnea or accessory muscle of respiration use. HEENT: Shows Pallor , no scleral icterus. Oral mucous membrane is dry. No pharyngeal erythema or thrush NECK: Trachea central, no thyromegaly. LUNGS: Unlabored breathing. Clear to auscultation anteriorly. No wheeze or crackle. HEART: S1, S2, regular rate and rhythm. No loud murmur ABDOMEN: Soft, no tenderness , guarding or rigidity, no organomegaly EXTREMITIES: No edema of feet. SKIN: No rash, no masses palpable. NEUROLOGICAL: The patient is awake, alert, oriented x3, mood and affect normal. Results CBC & Chem 7: 10/09/19 11:53 10/09/19 11:53 Labs: Abnormal Lab Results - Last 24 Hours (Table) 10/09/19 10/10/19 Range/Units 18:16 11:30 POC Glucose (mg/dL) 125 H (75-99) mg/dL Ur Leukocyte Esterase Large H (Negative) Urine WBC 22 H (0-5) /hpf Urine Mucus Rare H (None) /hpf Microbiology - Last 24 Hours (Table) 10/09/19 18:16 Urine Culture - Preliminary Urine,Voided Assessment and Plan Assessment: 1-patient presented to hospital with intractable low back pain more likely secondary to L4 5 disc herniation patient did have significant tension which will be related to her spine and some urinary symptoms and a positive UA, urinary tract infection not entirely excluded but clinically doubt most of her symptoms related to UTI, with no systemic symptoms of fever or elevated white count less likely to be pyelonephritis 2-patient with a penicillin ALLERGY with rash subsequently has tolerated Keflex without any problem (1) UTI (urinary tract infection) Current Visit: Yes Status: Acute Code(s): N39.0 - URINARY TRACT INFECTION, SITE NOT SPECIFIED SNOMED Code(s): 54550672 Plan: 1-discontinue the Levaquin 2- start the patient on Rocephin 2 g daily, with the discharge antibiotic depending upon urine cultures 3-gentle IV fluid We will follow on clinical condition and cultures to further adjust medication if needed Thank you for this consultation will follow this patient with you Time with Patient: Greater than 30
[2019-10-11] MEDS: SODIUM CHLORIDE 0.9% 1,000 ML IV SCH (05:08)
[2019-10-11] MEDS ORDERED: MAGNESIUM HYDROXIDE 2,400 MG/10 ML CUP PO PRN (08:33)
[2019-10-11] MEDS: PANTOPRAZOLE 40 MG TABLET PO SCH (08:34)
[2019-10-11] MEDS: INSULIN ASPART (NovoLOG) 100 UNIT/ML VIAL SQ SCH ×4 (08:34→21:51)
[2019-10-11] MEDS: methylPREDNISolone SOD SUCCI 40 MG/ML 1 ML VIAL IV SCH ×2 (08:34→15:48)
[2019-10-11 08:35] LABS: Glucose,Whole Blood 95 mg/dL (75-99)
[2019-10-11] MEDS: MULTIVITAMINS, THERA 1 EACH TAB PO SCH (08:35)
[2019-10-11] MEDS: TERBINAFINE 250 MG TAB PO SCH (08:35)
[2019-10-11] MEDS: LACTOBACILLUS ACIDOPH & BULGAR 1 EACH PACKET PO SCH (08:36)
[2019-10-11] MEDS: ALPRAZolam 0.25 MG TAB PO PRN ×2 (08:43→20:17)
[2019-10-11 11:53] LABS: Glucose,Whole Blood 108 mg/dL (75-99)
--- NOTE | 2019-10-11 15:29 | P.GSCN ---
History of Present Illness Consult date: 10/11/19 Reason for Consult: urinary retention History of present illness: Ms. Diego is a 53-year-old female admitted to the hospital with back pain. She indicated she's been having difficulty with urination, difficulty with defecation. She complains of dysuria and bladder pressure . She denies any fevers or chills complains of back and intermittent flank pain. Denies history of recurrent UTIs, renal calculi, or gross hematuria. No previous history of urinary retention. She denies any voiding dysfunction at baseline Her last PVR was 286 mL Review of Systems - Constitutional Reports fatigue, Reports weakness, Denies chills, Denies fever - Cardiovascular Denies chest pain, Denies leg edema - Respiratory Denies cough, Denies dyspnea - Gastrointestinal Reports abdominal pain, Reports constipation, Denies nausea, Denies vomiting - Genitourinary Genitourinary: Reports dysuria, Reports flank pain, Reports incomplete emptying, Denies kidney stones, Denies urge incontinence - Musculoskeletal Reports low back pain Past Medical History Past Medical History: GERD/Reflux, Hyperlipidemia Additional Past Medical History / Comment(s): recent PET scan History of Any Multi-Drug Resistant Organisms: None Reported Past Surgical History: Cholecystectomy, Hysterectomy, Orthopedic Surgery Additional Past Surgical History / Comment(s): bilateral breast lumps removed- benign, knee surgery, back surgery Past Anesthesia/Blood Transfusion Reactions: No Reported Reaction Past Psychological History: No Psychological Hx Reported Smoking Status: Never smoker Medications and Allergies Home Medications Medication Instructions Recorded Confirmed Type ALPRAZolam [Xanax] 0.25 mg PO BID PRN 10/08/19 10/08/19 History Amitriptyline HCl [Elavil] 10 mg PO HS 10/08/19 10/08/19 History Biotin 5 mg PO DAILY 10/08/19 10/08/19 History Cyclobenzaprine [Flexeril] 10 mg PO BID PRN 10/08/19 10/08/19 History L.acidoph,Paracasei, B.lactis 1 cap PO DAILY 10/08/19 10/08/19 History [Probiotic] Multivitamins, Thera [Multivitamin 1 tab PO DAILY 10/08/19 10/08/19 History (formulary)] Omeprazole 40 mg PO DAILY 10/08/19 10/08/19 History Terbinafine [LamISIL] 250 mg PO DAILY 10/08/19 10/08/19 History traMADol HCL 50 mg PO DAILY PRN 10/08/19 10/08/19 History Allergies Allergy/AdvReac Type Severity Reaction Status Date / Time Penicillins Allergy Rash/Hives Verified 10/08/19 15:15 Surgical - Exam Vital Signs Temp Pulse Resp BP Pulse Ox 97.7 F 116 H 17 161/91 93 L 10/08/19 14:39 10/08/19 14:39 10/08/19 14:39 10/08/19 14:39 10/08/19 14:39 - General well developed, well nourished, moderate pain - ENT normal mucosa, no hearing loss - Respiratory normal expansion, normal respiratory effort - Abdomen Abdomen: soft, tender (Lower quadrant ), no rigid, no rebound, no distended - Psychiatric oriented to time, oriented to person, speech is normal Results - Labs 10/09/19 11:53 10/09/19 11:53 Abnormal Lab Results - Last 24 Hours (Table) 10/10/19 10/10/19 10/11/19 Range/Units 16:41 20:21 11:50 POC Glucose (mg/dL) 121 H 156 H 108 H (75-99) mg/dL Microbiology - Last 24 Hours (Table) 10/09/19 18:16 Urine Culture - Final Urine,Voided Assessment and Plan Assessment: this is a 53-year-old female admitted with low back pain, UTI and urinary retention. She's been complaining a bladder pressure with associated dysuria. No previous history of urinary retention, or voiding dysfunction at baseline. urinary retention most likely secondary to patient's UTI and constipation Plan: -follow-up on urine culture -Please obtain a PVR, if greater than 300 CIC 1 if patient is still in urinary retention after that and place a Hansen -Bowel regimen for constipation -F/U in one week
[2019-10-11] MEDS: TAMSULOSIN 0.4 MG CAP.ER.24H PO SCH (16:54)
[2019-10-11 17:49] LABS: Glucose,Whole Blood 125 mg/dL (75-99)
[2019-10-11] MEDS: CYCLOBENZAPRINE 10 MG TAB PO PRN (17:58)
[2019-10-11 21:47] LABS: Glucose,Whole Blood 133 mg/dL (75-99)
[2019-10-11] MEDS: AMITRIPTYLINE HCL 25 MG TAB PO SCH (21:51)
[2019-10-11] MEDS: TEMAZEPAM 30 MG CAP PO PRN (23:54)
[2019-10-12] MEDS: methylPREDNISolone SOD SUCCI 40 MG/ML 1 ML VIAL IV SCH ×2 (00:05→08:44)
[2019-10-12] MEDS: SODIUM CHLORIDE 0.9% 1,000 ML IV SCH ×2 (00:06→16:39)
--- NOTE | 2019-10-12 02:37 | PN ---
PROGRESS NOTE Renetta Diego continues to have abdominal pain, although she is ambulating now. Continue broad-spectrum antibiotics for pyelonephritis, urinary retention, possibly due to constipation. No bowel movements 5 days. We gave prune juice, milk of magnesia today and break loose stools. Continues on Flomax for urinary retention. Await for urology consultation and infectious disease. Continue on IV antibiotics. Psych: She appears anxious. Cardiovascular S1-S2. GI palpation right lower quadrant. Mild guarding. No rebound. ASSESSMENT: 1. Pyelonephritis. 2. Lumbar neuritis. 3. Urinary retention. 4. Anxiety. Please see further orders. IV antibiotics, anxiety medications, pain control. Please see further orders. MMODL / IJN: [id number] /
[2019-10-12] MEDS: HYDROmorphone 1 MG/ML 1 ML SYRINGE IVP PRN ×4 (06:50→20:45)
[2019-10-12] MEDS: METOCLOPRAMIDE 5 MG/ML 2 ML VIAL IVP PRN ×2 (06:50→15:12)
[2019-10-12 07:43] LABS: Glucose,Whole Blood 101 mg/dL (75-99)
[2019-10-12] MEDS: INSULIN ASPART (NovoLOG) 100 UNIT/ML VIAL SQ SCH ×2 (08:13→12:40)
[2019-10-12] MEDS: LACTOBACILLUS ACIDOPH & BULGAR 1 EACH PACKET PO SCH (08:34)
[2019-10-12] MEDS: ALPRAZolam 0.25 MG TAB PO PRN (08:44)
[2019-10-12] MEDS: PANTOPRAZOLE 40 MG TABLET PO SCH (08:44)
[2019-10-12] MEDS: TERBINAFINE 250 MG TAB PO SCH (08:44)
[2019-10-12] MEDS: MULTIVITAMINS, THERA 1 EACH TAB PO SCH (08:44)
[2019-10-12] MEDS: MAGNESIUM HYDROXIDE 2,400 MG/10 ML CUP PO PRN (08:45)
[2019-10-12 12:32] LABS: Glucose,Whole Blood 121 mg/dL (75-99)
[2019-10-12] MEDS ORDERED: NA PHOS,M-B/NA PHOS,DI-BA 133 ML ENEMA RECTAL ONE (14:45)
--- NOTE | 2019-10-12 14:54 | XR ---
EXAMINATION TYPE: XR abdomen 2V DATE OF EXAM: 10/12/2019 HISTORY: Pain. Technique: 2 views of the abdomen are submitted. Comparison: None. Findings: There is no convincing evidence of pneumoperitoneum. The Bowel gas pattern is nonspecific and nonobstructive. No sizable air-fluid levels are seen. No mass effects are noted. No renal calcifications are identified. IMPRESSION: 1. Nonspecific nonobstructive bowel gas pattern . Moderate fecal stasis noted.
[2019-10-12 15:42] LABS: ALT 15 U/L (9-52); AST 17 U/L (14-36); African American GFR (CKD) >90 (>60 ml/min/1.73 sqM); Albumin 4.4 g/dL (3.5-5.0); Alkaline Phosphatase 45 U/L (38-126); Anion Gap 7 mmol/L; Blood Urea Nitrogen 19 mg/dL (7-17); Calcium 10.2 mg/dL (8.4-10.2); Carbon Dioxide 27 mmol/L (22-30); Chloride 105 mmol/L (98-107); Glucose 100 mg/dL (74-99); Non-African American GFR(CKD) >90 (>60 ml/min/1.73 sqM); Potassium 4.1 mmol/L (3.5-5.1); Sodium 139 mmol/L (137-145); Total Bilirubin 0.3 mg/dL (0.2-1.3); Total Protein 7.2 g/dL (6.3-8.2)
[2019-10-12 15:45] LABS: Appearance,Urine Cloudy (Clear); Bacteria,Urine Rare /hpf; Bilirubin,Urine Negative (Negative); Blood,Urine Negative (Negative); Budding Yeast,Urine Few /hpf; Color,Urine Light Yellow; Glucose,Urine (UA) Negative (Negative); Ketones,Urine Negative (Negative); Leukocyte Esterase,Urine Negative (Negative); Mucus,Urine Rare /hpf; Nitrite,Urine Negative (Negative); PH, Urine 7.5 (5.0-8.0); Protein,Urine Negative (Negative); RBC,Urine <1 /hpf (0-5); Specific Gravity,Urine 1.012 (1.001-1.035); Squamous Epithelial Cell,Urine 1 /hpf (0-4); Urobilinogen,Urine <2.0 mg/dL (<2.0); WBC,Urine 4 /hpf (0-5)
[2019-10-12 15:48] LABS: Basophils % (A) 0 %; Eosinophils % (A) 0 %; HCT 39.1 % (34.0-46.0); HGB 12.8 gm/dL (11.4-16.0); Lymphocytes # (A) 1.5 k/uL (1.0-4.8); Lymphocytes % (A) 14 %; MCH 29.5 pg (25.0-35.0); MCHC 32.8 g/dL (31.0-37.0); MCV 89.8 fL (80.0-100.0); Mean Platelet Volume 7.6; Monocytes # (A) 0.6 k/uL (0-1.0); Monocytes % (A) 5 %; Neutrophils # (A) 8.5 k/uL (1.3-7.7); Neutrophils % (A) 79 %; Platelet Count 234 k/uL (150-450); RBC 4.35 m/uL (3.80-5.40); RDW 12.5 % (11.5-15.5); WBC 10.7 k/uL (3.8-10.6)
[2019-10-12] MEDS: TAMSULOSIN 0.4 MG CAP.ER.24H PO SCH (16:39)
[2019-10-12] MEDS: AMITRIPTYLINE HCL 25 MG TAB PO SCH (20:43)
[2019-10-12] MEDS: TEMAZEPAM 30 MG CAP PO PRN (21:58)
--- NOTE | 2019-10-12 22:54 | PN ---
PROGRESS NOTE White female admitted with pyelonephritis, right-sided flank abdominal pain, acute lumbar radiculopathy on the right. She has had no bowel movement in 6 days. She wants a consultation with Surgery, Dr. Torres, which has been done. Repeat x-rays of the abdomen. Milk of Magnesia just did not work. We are going to give her some kind of enemas. CARDIOVASCULAR: S1, S2. LUNGS: Clear. GI: Tender to palpation, right lower quadrant. MUSCULOSKELETAL: She is able to ambulate down the schmitz. ASSESSMENT: 1. Acute on chronic constipation. 2. Pyelonephritis. 3. Abdominal pain. 4. Urinary retention secondary to constipation. 5. Urinary tract infection, minimal at this point. 6. Lumbar neuritis, right. Treat for constipation and possibly go home once cleared by Surgery. MMODL / IJN: [id number] /
[2019-10-13] MEDS: HYDROmorphone 1 MG/ML 1 ML SYRINGE IVP PRN ×5 (04:00→21:14)
[2019-10-13] MEDS: METOCLOPRAMIDE 5 MG/ML 2 ML VIAL IVP PRN ×3 (04:00→21:14)
[2019-10-13] MEDS: PANTOPRAZOLE 40 MG TABLET PO SCH (07:09)
[2019-10-13] MEDS: MULTIVITAMINS, THERA 1 EACH TAB PO SCH (07:09)
[2019-10-13] MEDS: LACTOBACILLUS ACIDOPH & BULGAR 1 EACH PACKET PO SCH (07:09)
[2019-10-13] MEDS: TERBINAFINE 250 MG TAB PO SCH (07:12)
[2019-10-13] MEDS: MAGNESIUM HYDROXIDE 2,400 MG/10 ML CUP PO PRN (08:08)
[2019-10-13 08:32] LABS: ALT 15 U/L (9-52); AST 16 U/L (14-36); African American GFR (CKD) >90 (>60 ml/min/1.73 sqM); Albumin 3.6 g/dL (3.5-5.0); Alkaline Phosphatase 41 U/L (38-126); Anion Gap 6 mmol/L; Blood Urea Nitrogen 22 mg/dL (7-17); Calcium 9.3 mg/dL (8.4-10.2); Carbon Dioxide 27 mmol/L (22-30); Chloride 106 mmol/L (98-107); Glucose 93 mg/dL (74-99); Non-African American GFR(CKD) >90 (>60 ml/min/1.73 sqM); Potassium 3.4 mmol/L (3.5-5.1); Sodium 139 mmol/L (137-145); Total Bilirubin 0.3 mg/dL (0.2-1.3); Total Protein 6.2 g/dL (6.3-8.2)
[2019-10-13] MEDS ORDERED: MINERAL OIL 133 ML ENEMA RECTAL STA (08:52)
[2019-10-13 09:02] LABS: Basophils % (A) 0 %; Eosinophils % (A) 1 %; HCT 35.4 % (34.0-46.0); HGB 11.9 gm/dL (11.4-16.0); Lymphocytes % (A) 34 %; MCH 30.2 pg (25.0-35.0); MCHC 33.7 g/dL (31.0-37.0); MCV 89.6 fL (80.0-100.0); Mean Platelet Volume 6.9; Monocytes # (A) 0.9 k/uL (0-1.0); Monocytes % (A) 10 %; Neutrophils # (A) 4.8 k/uL (1.3-7.7); Neutrophils % (A) 54 %; Platelet Count 201 k/uL (150-450); RBC 3.95 m/uL (3.80-5.40); RDW 12.6 % (11.5-15.5); WBC 8.8 k/uL (3.8-10.6)
--- NOTE | 2019-10-13 09:15 | PN ---
PROGRESS NOTE This is a 53-year-old white female with right-sided abdominal pain and diffuse abdominal pain with firmness. X-ray shows moderate amount of fecal stasis. One enema showed some blood in her stool. Waiting for Dr. Torres's recommendations. have Milk of Magnesia and prune juice and one Fleet enema with minimal results yesterday. We are going to try mineral oil Fleet enema today, wait for Dr. Torres's recommendation, as she has had a little bit of blood in her stool, possibly due to colonoscopy here as an outpatient. She can get up and ambulate with her back. She has a herniated disc in her right lower back. She has a history of anxiety, etc. Try Fleet enema. Wait for Dr. Torres's recommendations. MMODL / IJN: [id number] /
[2019-10-13] MEDS ORDERED: PEG 3350-NA SULF,BICARB,CL/KCL 4,000 ML BOTTLE PO ONE (10:12)
--- NOTE | 2019-10-13 10:17 | P.GSCN ---
History of Present Illness Consult date: 10/13/19 Reason for Consult: Abdominal pain History of present illness: Patient hospitalized with severe back pain radiating down the right leg. MRI sh ows possible disc disease. Patient also states she has had some urinary symptoms with urinary frequency. Per urology has likely had some urinary retention secondary to UTI. Along with this patient has had some constipation issues. Noticed a small amount of blood when she had an enema yesterday. We're consulted because of her constipation and abdominal pain. Abdominal pain is right-sided. Patient is on narcotics during the hospital stay for pain. Per the patient was not taking narcotics outside the hospital. She believes she is due for an upper and lower endoscopy. Review of Systems The patient denies any acute changes in vision or hearing, no dysphagia or odynophagia, no chest pain or shortness of breath, no dysuria or hematuria, no headache, no runny nose, no melena, no unexplained weight loss Past Medical History Past Medical History: GERD/Reflux, Hyperlipidemia Additional Past Medical History / Comment(s): recent PET scan History of Any Multi-Drug Resistant Organisms: None Reported Past Surgical History: Cholecystectomy, Hysterectomy, Orthopedic Surgery Additional Past Surgical History / Comment(s): bilateral breast lumps removed- benign, knee surgery, back surgery Past Anesthesia/Blood Transfusion Reactions: No Reported Reaction Past Psychological History: No Psychological Hx Reported Smoking Status: Never smoker Medications and Allergies Home Medications Medication Instructions Recorded Confirmed Type ALPRAZolam [Xanax] 0.25 mg PO BID PRN 10/08/19 10/08/19 History Amitriptyline HCl [Elavil] 10 mg PO HS 10/08/19 10/08/19 History Biotin 5 mg PO DAILY 10/08/19 10/08/19 History Cyclobenzaprine [Flexeril] 10 mg PO BID PRN 10/08/19 10/08/19 History L.acidoph,Paracasei, B.lactis 1 cap PO DAILY 10/08/19 10/08/19 History [Probiotic] Multivitamins, Thera [Multivitamin 1 tab PO DAILY 10/08/19 10/08/19 History (formulary)] Omeprazole 40 mg PO DAILY 10/08/19 10/08/19 History Terbinafine [LamISIL] 250 mg PO DAILY 10/08/19 10/08/19 History traMADol HCL 50 mg PO DAILY PRN 10/08/19 10/08/19 History Allergies Allergy/AdvReac Type Severity Reaction Status Date / Time Penicillins Allergy Rash/Hives Verified 10/08/19 15:15 Surgical - Exam Vital Signs Temp Pulse Resp BP Pulse Ox 97.7 F 116 H 17 161/91 93 L 10/08/19 14:39 10/08/19 14:39 10/08/19 14:39 10/08/19 14:39 10/08/19 14:39 Physical exam: General: Well-developed, well-nourished HEENT: Normocephalic, sclerae nonicteric Abdomen: Mild diffuse tenderness, nondistended Extremities: No edema Neuro: Alert and oriented Results - Labs 10/13/19 07:59 10/13/19 07:59 Abnormal Lab Results - Last 24 Hours (Table) 10/12/19 10/12/19 10/12/19 Range/Units 12:30 15:11 15:11 WBC 10.7 H (3.8-10.6) k/uL Neutrophils # 8.5 H (1.3-7.7) k/uL Potassium (3.5-5.1) mmol/L BUN 19 H (7-17) mg/dL Glucose 100 H (74-99) mg/dL POC Glucose (mg/dL) 121 H (75-99) mg/dL Total Protein (6.3-8.2) g/dL Urine Appearance (Clear) Urine Bacteria (None) /hpf Urine Mucus (None) /hpf Urine Yeast (Budding) (None) /hpf 10/12/19 10/13/19 Range/Units 15:30 07:59 WBC (3.8-10.6) k/uL Neutrophils # (1.3-7.7) k/uL Potassium 3.4 L (3.5-5.1) mmol/L BUN 22 H (7-17) mg/dL Glucose (74-99) mg/dL POC Glucose (mg/dL) (75-99) mg/dL Total Protein 6.2 L (6.3-8.2) g/dL Urine Appearance Cloudy H (Clear) Urine Bacteria Rare H (None) /hpf Urine Mucus Rare H (None) /hpf Urine Yeast (Budding) Few H (None) /hpf Diabetes panel 10/12/19 10/13/19 Range/Units 15:11 07:59 Sodium 139 139 (137-145) mmol/L Potassium 4.1 3.4 L (3.5-5.1) mmol/L Chloride 105 106 (98-107) mmol/L Carbon Dioxide 27 27 (22-30) mmol/L BUN 19 H 22 H (7-17) mg/dL Creatinine 0.69 0.72 (0.52-1.04) mg/dL Glucose 100 H 93 (74-99) mg/dL Calcium 10.2 9.3 (8.4-10.2) mg/dL AST 17 16 (14-36) U/L ALT 15 15 (9-52) U/L Alkaline Phosphatase 45 41 (38-126) U/L Total Protein 7.2 6.2 L (6.3-8.2) g/dL Albumin 4.4 3.6 (3.5-5.0) g/dL Calcium panel 10/12/19 10/13/19 Range/Units 15:11 07:59 Calcium 10.2 9.3 (8.4-10.2) mg/dL Albumin 4.4 3.6 (3.5-5.0) g/dL Pituitary panel 10/12/19 10/13/19 Range/Units 15:11 07:59 Sodium 139 139 (137-145) mmol/L Potassium 4.1 3.4 L (3.5-5.1) mmol/L Chloride 105 106 (98-107) mmol/L Carbon Dioxide 27 27 (22-30) mmol/L BUN 19 H 22 H (7-17) mg/dL Creatinine 0.69 0.72 (0.52-1.04) mg/dL Glucose 100 H 93 (74-99) mg/dL Calcium 10.2 9.3 (8.4-10.2) mg/dL Adrenal panel 10/12/19 10/13/19 Range/Units 15:11 07:59 Sodium 139 139 (137-145) mmol/L Potassium 4.1 3.4 L (3.5-5.1) mmol/L Chloride 105 106 (98-107) mmol/L Carbon Dioxide 27 27 (22-30) mmol/L BUN 19 H 22 H (7-17) mg/dL Creatinine 0.69 0.72 (0.52-1.04) mg/dL Glucose 100 H 93 (74-99) mg/dL Calcium 10.2 9.3 (8.4-10.2) mg/dL Total Bilirubin 0.3 0.3 (0.2-1.3) mg/dL AST 17 16 (14-36) U/L ALT 15 15 (9-52) U/L Alkaline Phosphatase 45 41 (38-126) U/L Total Protein 7.2 6.2 L (6.3-8.2) g/dL Albumin 4.4 3.6 (3.5-5.0) g/dL Assessment and Plan (1) Constipation Narrative/Plan: Start bowel prep today with tentative plans for upper and lower endoscopy on Tuesday. Minimize narcotic use as this is contributing to her constipation. Ambulate. Current Visit: Yes Status: Acute Code(s): K59.00 - CONSTIPATION, UNSPECIFIED SNOMED Code(s): 12276656
[2019-10-13] MEDS ORDERED: Potassium Replacement Protocol 1 EACH MISC MISCELLANE PRN (13:27)
[2019-10-13] MEDS: POTASSIUM CHLORIDE ER 20 MEQ TAB.ER PO SCH ×2 (13:54→15:28)
[2019-10-13] MEDS: SODIUM CHLORIDE 0.9% 1,000 ML IV SCH (15:27)
[2019-10-13] MEDS: TAMSULOSIN 0.4 MG CAP.ER.24H PO SCH (17:32)
[2019-10-13] MEDS: AMITRIPTYLINE HCL 25 MG TAB PO SCH (21:14)
[2019-10-13] MEDS: TEMAZEPAM 30 MG CAP PO PRN (22:54)
--- NOTE | 2019-10-13 22:59 | PN ---
PROGRESS NOTE White female right lower quadrant abdominal pain. Going to give her another enema. She is probably constipated causing her abdominal pain. Waiting for Dr. Torres to see her for surgical evaluation. She had some blood in her stool with enema yesterday. We are going to give her another enema today. X-rays were reviewed showing moderate stool. She is scheduled for an outpatient EGD and colonoscopy anyway. Cardiovascular S1-S2. Lungs clear. GI is tenderness to palpation right lower quadrant. Mild guarding. Decreased breath sounds. ASSESSMENT: 1. Acute on chronic constipation. 2. Lumbar neuritis right. 3. Urinary retention secondary to constipation, pyelonephritis ruled out. Continue current treatment. Enemas, oral bowel. Medications for constipation. Possible discharge once cleared by Surgical Department. MMODL / IJN: [id number] /
[2019-10-14] MEDS: HYDROmorphone 1 MG/ML 1 ML SYRINGE IVP PRN ×4 (04:11→19:15)
[2019-10-14] MEDS: PANTOPRAZOLE 40 MG TABLET PO SCH (07:02)
[2019-10-14] MEDS: TERBINAFINE 250 MG TAB PO SCH (07:02)
[2019-10-14] MEDS: MULTIVITAMINS, THERA 1 EACH TAB PO SCH (07:02)
[2019-10-14] MEDS: LACTOBACILLUS ACIDOPH & BULGAR 1 EACH PACKET PO SCH (07:02)
[2019-10-14] MEDS: METOCLOPRAMIDE 5 MG/ML 2 ML VIAL IVP PRN ×2 (07:14→17:35)
[2019-10-14] MEDS ORDERED: ACETAMINOPHEN TAB 325 MG TAB PO PRN (09:07)
--- NOTE | 2019-10-14 10:32 | P.PN ---
Subjective Progress Note Date: 10/14/19 Principal diagnosis: Abdominal pain, rectal bleeding, constipation Patient says her pain is persisting although slightly improved. She has had multiple looser stools with the prep so far. No vomiting. Abdominal bloating improved. Objective - Vital Signs Vital signs: Vital Signs Temp 98 F 10/14/19 04:47 Pulse 79 10/14/19 04:47 Resp 20 10/14/19 04:47 BP 157/90 10/14/19 04:47 Pulse Ox 98 10/14/19 04:47 Intake & Output 10/13/19 10/14/19 10/14/19 18:59 06:59 18:59 Intake Total 1270 300 Output Total 137 0 Balance 1133 300 Intake: Oral 1270 300 Output: Post Void Residual 137 Stool 0 Other: Voiding Method Toilet Toilet # Voids 2 3 # Bowel Movements 0 - Exam Abdomen: Soft, mild diffuse tenderness, no rebound or guarding, nondistended - Labs CBC & Chem 7: 10/13/19 07:59 10/13/19 16:03 Assessment and Plan (1) Constipation Narrative/Plan: Continue bowel prep. Plan upper and lower endoscopy tomorrow. Keep on clears. Current Visit: Yes Status: Acute Code(s): K59.00 - CONSTIPATION, UNSPECIFIED SNOMED Code(s): 98967381
[2019-10-14] MEDS: SODIUM CHLORIDE 0.9% 1,000 ML IV SCH (13:18)
[2019-10-14] MEDS: TAMSULOSIN 0.4 MG CAP.ER.24H PO SCH (17:32)
[2019-10-14] MEDS: ALPRAZolam 0.25 MG TAB PO PRN (17:36)
[2019-10-14] MEDS: AMITRIPTYLINE HCL 25 MG TAB PO SCH (21:31)
[2019-10-14] MEDS: TEMAZEPAM 30 MG CAP PO PRN (22:07)
--- NOTE | 2019-10-15 01:47 | PN ---
PROGRESS NOTE 53-year-old white female who still has lumbar back pain radiating down her right leg and into her abdomen. She is getting a colonoscopy and EGD tomorrow for abdominal pain and constipation. She is on GoLYTELY today. Vital signs otherwise are good. GI soft. Hematology negative Homans. Psych fair mood and affect. ASSESSMENT: 1. Lumbar neuritis with disc herniation on the right. 2. Abdominal pain, chronic constipation. PLAN: EGD colonoscopy and then discharge home and outpatient lumbar epidural the hospital depending on what they decide. MMODL / IJN: [id number] /
--- NOTE | 2019-10-15 02:02 | PN ---
PROGRESS NOTE DATE OF SERVICE: 10/14/2019. REASON FOR FOLLOWUP: Urinary tract infection. INTERVAL HISTORY: The patient is currently afebrile. Patient is breathing comfortably. Overall pain to the right leg area has improved. No nausea, vomiting and no diarrhea. PHYSICAL EXAMINATION: Blood pressure is 153/87 with a pulse of 86, temperature of 98. She is 97% on room air. General description is a middle-aged female lying in bed in no distress. Respiratory system: Unlabored breathing, clear to auscultation anteriorly. Heart S1, S2. Regular rate and rhythm. Abdomen soft, no tenderness. LABS: White count of 8.8, creatinine 0.72. Urine cultures have been negative so far. DIAGNOSTIC IMPRESSION AND PLAN: Patient with a right flank pain. Positive UA with concern for urinary tract infection. Patient is currently covered with Rocephin. Culture has been negative so far. Recommend discontinue antibiotic on discharge. We will monitor clinical course closely. MMODL / IJN: [id number] /
[2019-10-15] MEDS: HYDROmorphone 1 MG/ML 1 ML SYRINGE IVP PRN ×2 (04:59→09:07)
[2019-10-15] MEDS: SODIUM CHLORIDE 0.9% 1,000 ML IV SCH (08:20)
[2019-10-15] MEDS: LACTOBACILLUS ACIDOPH & BULGAR 1 EACH PACKET PO SCH (08:21)
[2019-10-15] MEDS: MULTIVITAMINS, THERA 1 EACH TAB PO SCH (08:21)
[2019-10-15] MEDS: TERBINAFINE 250 MG TAB PO SCH (08:21)
[2019-10-15] MEDS: PANTOPRAZOLE 40 MG TABLET PO SCH (08:21)
[2019-10-15] MEDS: METOCLOPRAMIDE 5 MG/ML 2 ML VIAL IVP PRN (08:24)
[2019-10-15] MEDS ORDERED: LIDOCAINE 1% INJ 10MG/ML (20 ML MDV) ONE (14:17)
[2019-10-15] MEDS ORDERED: PROPOFOL 10 MG/ML 20 ML VIAL IV ONE (14:17)
[2019-10-15] MEDS ORDERED: IV FLUID CONTINUATION 1,000 ML IV ONE (14:18)
[2019-10-15 14:43] VITALS: BP 162/94; PULSE 90; RESP 18; TEMP 98
--- NOTE | 2019-10-15 14:51 | P.OP ---
Date of Procedure: 10/15/19 Procedure(s) Performed: PREOPERATIVE DIAGNOSIS: Abdominal pain, GERD, change in bowel habits POSTOPERATIVE DIAGNOSIS: Pyloric channel ulcer, mild gastritis, normal colon PROCEDURE: 1. EGD with biopsy 2. Colonoscopy ANESTHESIA: MAC SURGEON: Patric Torres M.D. SPECIMENS: Pyloric channel ENDOSCOPIC PROCEDURE: The patient was on the endoscopy table in the left decubitus position. The Olympus gastroscope was inserted into the oropharynx and passed under direct visualization to the region of the third portion of the duodenum. From that point the scope was slowly withdrawn inspecting all surfaces carefully. There were no neoplastic inflammatory or polypoid lesions throughout the duodenum. The pylorus was widely patent. Within the pyloric channel itself was a small superficial ulcer. This measured approximately 4 mm in size. A biopsy was taken of the pylorus and the pyloric channel ulcer. The stomach was inspected and revealed mild gastritis. Retroflexion revealed a normal hiatus. The esophagus was then carefully examined. There were no neoplastic inflammatory or polypoid lesions throughout the visualized esophagus. The patient was kept on the endoscopy table in the left decubitus position. The Olympus colonoscope was inserted into the anus and passed under direct visualization to the base of the cecum. The appendiceal orifice was visualized. From that point the scope was slowly withdrawn inspecting all surfaces carefully. There were no neoplastic inflammatory or polypoid lesions throughout the cecum, ascending, transverse, descending, sigmoid and rectum. There was no visible diverticulosis noted. Digital rectal examination was normal. The patient was taken to the recovery room in stable condition per anesthesia guidelines. RECOMMENDATIONS: Await biopsy results. Add Carafate to Protonix already prescribed. Resume diet. Continue stool softeners.
--- NOTE | 2019-10-15 15:35 | PN ---
PROGRESS NOTE DATE OF SERVICE: 10/15/2019 REASON FOR FOLLOWUP: Urinary tract infection. INTERVAL HISTORY: The patient is currently afebrile. The patient is breathing comfortably. The patient denies having any chest pain, shortness of breath or cough. Abdominal pain has improved as well as urinary symptoms. PHYSICAL EXAMINATION: Blood pressure 162/94 with a pulse of 90, temperature 98, she is 96% on room air. General description is a middle-aged female, lying in bed in no distress. RESPIRATORY SYSTEM: Unlabored breathing, clear to auscultation anteriorly. HEART: S1, S2. Regular rate and rhythm. ABDOMEN: Soft, no tenderness. EXTREMITIES: No edema of the feet. LABS: No new labs have been obtained today. Patient's repeat urine on 10/12 was negative. Blood culture has been negative. DIAGNOSTIC IMPRESSION AND PLAN: Patient with right flank pain in the positive area with concern for urinary tract infection. Blood cultures have been negative. Urine is negative. The patient's symptoms resolved underlying UTI has been adequately treated. Antibiotic to be discontinued on discharge. Continue supportive care. MMODL / IJN: [id number] /
[2019-10-15] MEDS ORDERED: SUCRALFATE 1 GM TAB PO SCH (17:30)
[2019-10-15] MEDS ORDERED: DOCUSATE 100 MG CAP PO SCH (21:00)
--- NOTE | 2019-10-19 11:38 | DS ---
DISCHARGE SUMMARY DATE OF ADMISSION: 10/10/2019 DATE OF DISCHARGE: 10/15/2019 CONDITION: Stable. PROGNOSIS: Guarded. Ambulate as tolerated. Follow up with Surgery as an outpatient after she had a colonoscopy and EGD for significant abdominal pain, flank pain. She was also seen by neurosurgeon, and chronic pain physician for her neuropathy and the lumbar disc herniation on the right back. She will follow up as an outpatient for epidural shot in the lumbar spine. As mentioned she underwent EGD and colonoscopy by Dr. Torres, Surgery who found pyloric channel ulcer, mild gastritis, normal colon. Keep her on a proton pump inhibitor for which she will be discharged home. Follow up as an outpatient and get an epidural shot as an outpatient. She had a renal ultrasound and urine culture, which were normal. She is on discharge him home on: 1. Omeprazole 40 mg daily. 2. Elavil 10 q.h.s. 3. Multivitamin daily. 4. Probiotic 1 daily. 5. Flexeril 10 b.i.d. 6. Bystolic 5 mg daily. 7. Tramadol 50 daily p.r.n. 8. Xanax 0.25 b.i.d. 9. Lamisil 250 p.o. daily. 10.Carafate 1 g a.c. t.i.d.. 11.Colace 100 mg p.o. b.i.d. Follow up as an outpatient. MMODL / IJN: [id number] /
== END 2019-10-15 16:00 | disposition home or self-care (01) ==
LOC: 4MS4W 14:07 → 1SOBS 10-09 11:10 → OBSVTOIN 10-10 08:25 → INTOOBSV 10-10 08:25 → 4MS4W 10-11 16:20 → UNDODISIN 10-15 16:00
PROVIDERS: ADMIT Family Medicine; ATTEND Family Medicine
DX: M51.16 Intervertebral disc disorders with radiculopathy, lumbar region (principal); K29.50 Unspecified chronic gastritis without bleeding; N12 Tubulo-interstitial nephritis, not specified as acute or chronic; M47.26 Other spondylosis with radiculopathy, lumbar region; E78.5 Hyperlipidemia, unspecified; F41.9 Anxiety disorder, unspecified; K21.9 Gastro-esophageal reflux disease without esophagitis; K59.09 Other constipation; R33.8 Other retention of urine; Z87.891 Personal history of nicotine dependence; Z88.0 Allergy status to penicillin; Z90.710 Acquired absence of both cervix and uterus; K25.9 Gastric ulcer, unspecified as acute or chronic, without hemorrhage or perforation
CPT/HCPCS: 96376 ×7; 96366 ×4; 96365; 96375 ×3; 88305; 80053 ×3; 80048; 84132; 85025 ×4; 81001 ×2; 87086; 87502; 72100; 74019; 76770; 74176; 72158; 45378; 43239; G0378 ×10; G0379; J2765 ×6; J2920 ×4; J0696 ×6; J2001; J1170 ×9; J2704; C9113; A9585

== ENCOUNTER → 2019-12-17 | Outpatient (CLI) | payer OTHER ==
[2019-12-13 13:58] VITALS: BMI 21.7
[2019-12-17 11:40] VITALS: BP 159/99; PULSE 99; RESP 16
--- NOTE | 2019-12-17 12:10 | P.PAINCN ---
History of Present Illness - Reason for Consult Consult date: 12/17/19 - History of Present Illness This is an initial consultation visit for this 54 years old female with the chronic history of severe low back pain with radiation to the right lower extremity associated with numbness and tingling sensation, the pain is constant and increases with any activity, started 5 months ago she denies any initiating event, she reported that she had the lumbar micro-discectomy surgery done 5 years ago at [facility], and she did fairly well after the surgery until 5 months ago, she is able to ambulate but she reports that the pain interferes with the quality of life she continue to use [place] 5/325 when necessary and Flexeril, both medication is not helping enough to control the pain, she denies any fever or night sweats she denies any change in the bowel movement or urination, but she feels that her right lower extremity weaker than the left side. Past Medical History Past Medical History: GERD/Reflux Additional Past Medical History / Comment(s): ulcer, lumbar pain, blood pressure elevated with pain History of Any Multi-Drug Resistant Organisms: None Reported Past Surgical History: Back Surgery, Cholecystectomy, Hysterectomy, Orthopedic Surgery Additional Past Surgical History / Comment(s): bilateral breast lumps removed- benign, knee surgery, back surgery Past Anesthesia/Blood Transfusion Reactions: No Reported Reaction Past Psychological History: No Psychological Hx Reported Smoking Status: Former smoker Past Alcohol Use History: Occasional Additional Past Alcohol Use History / Comment(s): smoked 25-30 years 1 pack/3d- quit 10/14/19 Past Drug Use History: None Reported - Past Family History Mother Family Medical History: No Reported History, Dementia Additional Family Medical History / Comment(s): parkinsons Father Family Medical History: Cancer Additional Family Medical History / Comment(s): lung cancer Medications and Allergies Home Medications Medication Instructions Recorded Confirmed Type ALPRAZolam [Xanax] 0.25 mg PO BID PRN 10/08/19 12/13/19 History Biotin 5 mg PO DAILY 10/08/19 12/13/19 History Cyclobenzaprine [Flexeril] 10 mg PO BID PRN 10/08/19 12/13/19 History L.acidoph,Paracasei, B.lactis 1 cap PO DAILY 10/08/19 12/13/19 History [Probiotic] Multivitamins, Thera [Multivitamin 1 tab PO DAILY 10/08/19 12/13/19 History (formulary)] Omeprazole 40 mg PO DAILY 10/08/19 12/13/19 History Terbinafine [LamISIL] 250 mg PO DAILY 10/08/19 12/13/19 History Docusate [Colace] 100 mg PO BID #60 cap 10/15/19 12/13/19 Rx Sucralfate [Carafate] 1 gm PO AC-TID #90 tab 10/15/19 12/13/19 Rx HYDROcodone/APAP 5-325MG [[place] 0.5 tab PO BID PRN 12/13/19 12/13/19 History 5-325] amLODIPine [Norvasc] 5 mg PO DAILY 12/13/19 12/13/19 History Allergies Allergy/AdvReac Type Severity Reaction Status Date / Time Penicillins Allergy Rash/Hives Verified 12/13/19 13:40 Physical Exam Vitals: Vital Signs Pulse Resp BP Pulse Ox 12/17/19 11:30 99 16 159/99 97 REVIEW OF ORGAN SYSTEMS: CONSTITUTIONAL: No fevers or chills. No recent weight loss. EYES: denies troubles with vision. HEENT: No difficulties with hearing. No nosebleeds. No difficulty swallowing. RESPIRATORY: Denies any troubles with breathing or dyspnea on exertion. CARDIOVASCULAR: Denies any chest pain, palpitations, or recent heart attacks. GASTROINTESTINAL: Denies fatty food intolerance. Has change in bowel habits and gas bloat. GENITOURINARY: Denies any blood in urine. Has increased urinary frequency. NEUROLOGICAL: + numbness and tingling along the right lower extremities. No seizure disorders or headaches. MUSCULOSKELETAL: Has back pain. SKIN:no skin cancer. No rash. PSYCHIATRIC: Denies current depression or suicidal thoughts. ENDOCRINE: Denies current thyroid disorders. Denies any blood sugar glucose intolerance. HEME/LYMPHATIC: Denies any lumps and bumps around the neck. History of deep venous thrombosis. ALLERGY/IMMUNOLOGY: No immunoglobulin therapy. No immune deficiencies. BREAST: Denies current breast lumps, pain or nipple discharge. Physical Examinations : Constitutiona : Cooperative , not in acute distress . HEENT : nech : supple , no Lymphadenopathy , normal thyroid size . : eyes no ptosis , no icterus, no photophobia . : ENT normal of hearing , normal oropharynx , no Thrush . Respiratory : Chest clear to auscultations Bilaterally , no wheezing , no Rhonchi . Cardiovascula : regular rate and rhythem , S1 , S2 , no S3 , no S4. Gastrointestina : abdomen soft no tenderness , bowel sounds , no organomegally . Genitourinary : Defferred . neurologic : Cranial nerve II to XII intact , no focal neurological deffecit . psychatric : alert , oriented X 3 , appropriate affect , intact judgment and insight . Lymphatic : no Lymphadenopathy . musculoskeltal : Lumber spine moter stegnth lower extremities ,thigh and legs 4/5 Right side , 5/5 Left side deep tendon reflexes : normal Knee Jerk , normal ankle Jerk lumber facet Loading Test= positive Right , positive Left Range of motion of the lumbar spine Flexion 30 degrees, extension 10 degrees strait leg raising test , positive at 30 degree on the right side, and is positive at 60 on the left side Fabere test= positive Right , and ne gative left . mild tenderness over the Sacroiliac joint on the Right , and Left sides Results Comments: MRI of the lumbar spine= lumbar bulging disc disease with foraminal encroachment, and multilevel lumbar facet arthropathy Assessment and Plan Plan: Assessment and plan=1-right sided lumbar radiculopathy. 2-lumbar degenerative disc disease. 3-lumbar spondylosis with lumbar facet arthropathy without myelopathy. Patient will be good candidate to have right side transforaminal epidural steroid injection at L4-L5 and L5-S1 under fluoroscopy guidance Patient should continue to use [place] and Flexeril as prescribed by her primary care. Time with Patient: Greater than 30 PQRS Measure Charge Sheet Measure #130: Documentation of Current Meds in Medical Chart: Patient's medications documented in chart Measure #226: Tobacco Use: Screen & Cessation Intervention: Pt not a tobacco user Measure #111: Pneumonia Vaccination: Pneumococcal vaccine NOT administered or previously given Measure #47: Advance Care Plan: Advance care planning discussed & documented, pt chose/unable to give Measure #412: Opioid Treatment Agreement: No documentation of signed opioid treatment agreement Measure #408: Opioid Therapy Follow-up Evaluation: Patient had NO f/u eval minimum every 3 months during opioid therapy Measure #317: Preventitive Care & Scrn High Bld Press & F/U: Pre-hypertensive or hypertensive BP documented, pt will f/u with PCP Measure #128: Body Mass Index (BMI) Screening & Follow-up: BMI documented within normal parameters Measure #131: Pain Assessment & Follow-up: Pain positive & plan documented, Follow-up scheduled Measure #431: Unhealthy Alcohol Use Preventative Care & Scrn: Patient not identified as an unhealthy alcohol user PQRS Narrative: Smoking Status Former smoker Blood Pressure 159/99 Pain Intensity [Lower Back] 9 Scale Used Numeric (1 - 10) Hx Alcohol Use (MH) Yes: social Home Medications: Ambulatory Orders ALPRAZolam [Xanax] 0.25 mg PO BID PRN 10/08/19 Biotin 5 mg PO DAILY 10/08/19 Cyclobenzaprine [Flexeril] 10 mg PO BID PRN 10/08/19 L.acidoph,Paracasei, B.lactis [Probiotic] 1 cap PO DAILY 10/08/19 Multivitamins, Thera [Multivitamin (formulary)] 1 tab PO DAILY 10/08/19 Omeprazole 40 mg PO DAILY 10/08/19 Terbinafine [LamISIL] 250 mg PO DAILY 10/08/19 Docusate [Colace] 100 mg PO BID #60 cap 10/15/19 Sucralfate [Carafate] 1 gm PO AC-TID #90 tab 10/15/19 HYDROcodone/APAP 5-325MG [[place] 5-325] 0.5 tab PO BID PRN 12/13/19 amLODIPine [Norvasc] 5 mg PO DAILY 12/13/19
== END | disposition home or self-care (01) ==
LOC: PNWHC3 11:08
PROVIDERS: ATTEND Specialist
DX: M51.16 Intervertebral disc disorders with radiculopathy, lumbar region (principal); M47.26 Other spondylosis with radiculopathy, lumbar region; M46.96 Unspecified inflammatory spondylopathy, lumbar region; I10 Essential (primary) hypertension; Z87.891 Personal history of nicotine dependence; Z98.890 Other specified postprocedural states; Z79.891 Long term (current) use of opiate analgesic; Z79.899 Other long term (current) drug therapy; Z88.0 Allergy status to penicillin
CPT/HCPCS: 99211

== ENCOUNTER 2020-01-09 06:53 | Day surgery (SDC) | payer OTHER ==
[2020-01-07 15:13] VITALS: BMI 22.1
[~2020-01-09 06:53] MED LIST: LACTATED RINGERS 1,000 ML IV SCH
[2020-01-09] MEDS ORDERED: LIDOCAINE 1% (10MG/ML) FOR IV START INTRADERMA ONE (07:24)
[2020-01-09 07:28] VITALS: TEMP 97.7
[2020-01-09] MEDS ORDERED: fentaNYL (PF) 50 MCG/ML 2 ML AMP ONE (08:11)
[2020-01-09] MEDS ORDERED: methylPREDNISolone ACETATE 40 MG/ML 1 ML VIAL ONE (08:11)
[2020-01-09] MEDS ORDERED: MIDAZOLAM 2 MG/2 ML VIAL ONE (08:11)
[2020-01-09] MEDS ORDERED: IOPAMIDOL M200 10 ML VIAL ONE (08:11)
--- NOTE | 2020-01-09 08:28 | P.PCN ---
Date of Procedure: 01/09/20 Procedure(s) Performed: PREOPERATIVE DIAGNOSIS: Lumbar radiculopathy. Lumbar degenerative disc disease. Lumbar spondylosis with lumbar facet arthropathy. POSTOPERATIVE DIAGNOSIS: Same as preoperative Diagnoses. PROCEDURE 1. Transforaminal epidural steroid injection under fluoroscopic guidance at right L4-5 , L5-S1 level. (Fluoroscopy images stored on file in the radiology Department ) 2. Lumbar epidurogram : ANESTHESIA: moderate sedation with intravenous Versed 2 mg and fentanyle 100 micrograms EBL: Minimal PROCEDURE INDICATION: The patient with low back pain and radiculopathy symptoms unresponsive to conservative treatment. PROCEDURE DESCRIPTION / TECHNIQUE: The patient was seen and identified in the preoperative area. Risks, benefits, complications, and alternatives were discussed with the patient. The patient agreed to proceed with the procedure and signed the consent. IV was started, and vital signs were stable. Patient was taken to the OR and time out was completed. The patient was placed in the prone position on procedure table and a pillow was placed under the abdomen to reduce lumbar lordosis. The lumbosacral area was prepped and draped in the usual sterile fashion. Critical pause was taken. Vital signs were closely monitored during the procedure. Conscious sedation was used during the procedure to decrease patient s anxiety. Using oblique fluoroscopy, the chin of the ``Magno dog at right L4 5 level was identified, and the skin and deeper tissues just below was localized with 1% lidocaine. Subsequently, a 22-gauge 3.5-inch spinal needle was advanced under a tunneled view fluoroscopic guidance just underneath the chin of the ``Magno dog at the right L4 5. Under lateral fluoroscopy, the needle was then advanced to the posterior border of the right L4 5 interforaminal space. After negative aspiration of CSF and blood and with no paresthesias, 1 mL Isovue 200 contrast dye was injected excellent epidurogram and outlining of the nerve root Subsequently, 3 mL of block solution containing 40 mg Depo-medrol and 2 mL of Lidocaine 1% was injected. Needle was removed and the same procedure was repeated at the right L5-S1 level . At the end of the procedure, skin was cleansed, and bandages were applied. COMPLICATIONS:none DISPOSITION / PLANS: The patient was placed in a supine position and transferred to the recovery area in a stable condition for observation. There was no evidence of lower extremity motor or sensory deficit after the procedure. Patient was discharged from the recovery room after meeting discharge criteria. Home discharge instructions were given to the patient by the staff. The patient was reexamined prior to discharge.
[2020-01-09] MEDS ORDERED: IV FLUID CONTINUATION 1,000 ML IV ONE ×2 (08:30)
--- NOTE | 2020-01-09 08:43 | FL ---
EXAMINATION TYPE: FL guided pain mgmt statistic DATE OF EXAM: 01/09/2020 HISTORY: Pain rt transforaminal epidural steroid injection. 5 sec fl, 2 images scanned.
[2020-01-09 09:08] VITALS: BP 125/82; PULSE 80; RESP 20
== END 2020-01-09 09:08 | disposition home or self-care (01) ==
LOC: ORPAIN 06:53
PROVIDERS: ATTEND Specialist
DX: M51.16 Intervertebral disc disorders with radiculopathy, lumbar region (principal); M47.26 Other spondylosis with radiculopathy, lumbar region; Z90.710 Acquired absence of both cervix and uterus; K21.9 Gastro-esophageal reflux disease without esophagitis; R03.0 Elevated blood-pressure reading, without diagnosis of hypertension; Z98.890 Other specified postprocedural states; Z90.49 Acquired absence of other specified parts of digestive tract; Z87.891 Personal history of nicotine dependence; Z79.899 Other long term (current) drug therapy; Z88.0 Allergy status to penicillin; Z79.891 Long term (current) use of opiate analgesic; Z81.8 Family history of other mental and behavioral disorders; Z82.0 Family history of epilepsy and other diseases of the nervous system; Z80.1 Family history of malignant neoplasm of trachea, bronchus and lung
CPT/HCPCS: 64483; 64484; J2250; J1030; J3010; Q9966; 99152

== ENCOUNTER 2020-01-23 07:28 | Day surgery (SDC) | payer OTHER ==
[2020-01-22 13:07] VITALS: BMI 24.0
[2020-01-23 08:07] VITALS: RESP 16; TEMP 97.1
[2020-01-23 08:17] LABS: Glucose,Whole Blood 99 mg/dL (75-99)
[2020-01-23] MEDS ORDERED: LIDOCAINE 1% (10MG/ML) FOR IV START INTRADERMA ONE (08:17)
--- NOTE | 2020-01-23 08:39 | P.GSHP ---
History of Present Illness H&P Date: 01/23/20 This is 54 years old female with the chronic history of severe low back pain with radiation to the right lower extremity associated with numbness and tingling sensation, and is diagnosed with lumbar radiculopathy she is here to have right-sided transforaminal epidural steroid injection at L4 5 and L5-S1 Past Medical History Past Medical History: GERD/Reflux Additional Past Medical History / Comment(s): ulcer, lumbar pain, blood pressure elevated with pain History of Any Multi-Drug Resistant Organisms: None Reported Past Surgical History: Back Surgery, Cholecystectomy, Hysterectomy, Orthopedic Surgery Additional Past Surgical History / Comment(s): bilateral breast lumps removed- benign, knee surgery, back surgery Past Anesthesia/Blood Transfusion Reactions: No Reported Reaction Smoking Status: Former smoker - Past Family History Father Family Medical History: Cancer Additional Family Medical History / Comment(s): lung cancer Medications and Allergies Home Medications Medication Instructions Recorded Confirmed Type ALPRAZolam [Xanax] 0.25 mg PO BID PRN 10/08/19 01/23/20 History Biotin 5 mg PO DAILY 10/08/19 01/23/20 History Cyclobenzaprine [Flexeril] 10 mg PO BID PRN 10/08/19 01/23/20 History L.acidoph,Paracasei, B.lactis 1 cap PO DAILY 10/08/19 01/23/20 History [Probiotic] Multivitamins, Thera [Multivitamin 1 tab PO DAILY 10/08/19 01/23/20 History (formulary)] Omeprazole 40 mg PO DAILY 10/08/19 01/23/20 History Docusate [Colace] 100 mg PO BID #60 cap 10/15/19 01/23/20 Rx Sucralfate [Carafate] 1 gm PO AC-TID #90 tab 10/15/19 01/23/20 Rx HYDROcodone/APAP 5-325MG [[place] 0.5 tab PO BID PRN 12/13/19 01/23/20 History 5-325] amLODIPine [Norvasc] 5 mg PO DAILY 12/13/19 01/23/20 History Allergies Allergy/AdvReac Type Severity Reaction Status Date / Time Penicillins Allergy Rash/Hives Verified 01/23/20 08:02 Surgical - Exam Vital Signs Temp Pulse Resp BP Pulse Ox 97.1 F L 78 16 116/75 97 01/23/20 08:06 01/23/20 08:06 01/23/20 08:06 01/23/20 08:06 01/23/20 08:06 Constitutiona : Cooperative , not in acute distress . HEENT : nech : supple , no Lymphadenopathy , normal thyroid size . : eyes no ptosis , no icterus, no photophobia . : ENT normal of hearing , normal oropharynx , no Thrush . Respiratory : Chest clear to auscultations Bilaterally , no wheezing , no Rhonchi . Cardiovascula : regular rate and rhythem , S1 , S2 , no S3 , no S4. Gastrointestina : abdomen soft no tenderness , bowel sounds , no organomegally . Genitourinary : Defferred . neurologic : Cranial nerve II to XII intact , no focal neurological deffecit . psychatric : alert , oriented X 3 , appropriate affect , intact judgment and insight . Lymphatic : no Lymphadenopathy . musculoskeltal : Lumber spine moter stegnth lower extremities ,thigh and legs 4/5 Right side , 5/5 Left side deep tendon reflexes : normal Knee Jerk , normal ankle Jerk lumber facet Loading Test= positive Rig ht , positive Left Range of motion of the lumbar spine Flexion 30 degrees, extension 10 degrees strait leg raising test , positive at 30 degree on the right side, and is positive at 60 on the left side Fabere test= positive Right , and negative left . mild tenderness over the Sacroiliac joint on the Right , and Left sides Assessment and Plan Plan: Assessment and plan=1-right sided lumbar radiculopathy. 2-lumbar degenerative disc disease. 3-lumbar spondylosis with lumbar facet arthropathy without myelopathy. Patient will be good candidate to have repeate right side transforaminal epidural steroid injection at L4-L5 and L5-S1 under fluoroscopy Time with Patient: Less than 30
[2020-01-23] MEDS ORDERED: MIDAZOLAM 2 MG/2 ML VIAL ONE (08:45)
[2020-01-23] MEDS ORDERED: fentaNYL (PF) 50 MCG/ML 2 ML AMP ONE (08:45)
[2020-01-23] MEDS ORDERED: IOPAMIDOL M200 10 ML VIAL ONE (08:45)
[2020-01-23] MEDS ORDERED: methylPREDNISolone ACETATE 40 MG/ML 1 ML VIAL ONE (08:45)
--- NOTE | 2020-01-23 09:01 | P.PCN ---
Date of Procedure: 01/23/20 Procedure(s) Performed: PREOPERATIVE DIAGNOSIS: Lumbar radiculopathy. Lumbar degenerative disc disease. Lumbar spondylosis with lumbar facet arthropathy. POSTOPERATIVE DIAGNOSIS: Same as preoperative Diagnoses. PROCEDURE 1. Transforaminal epidural steroid injection under fluoroscopic guidance at right L4-5 , L5-S1 level. (Fluoroscopy images stored on file in the radiology Department ) 2. Lumbar epidurogram : ANESTHESIA: moderate sedation with intravenous Versed 1 mg and fentanyle 100 micrograms EBL: Minimal PROCEDURE INDICATION: The patient with low back pain and radiculopathy symptoms unresponsive to conservative treatment. PROCEDURE DESCRIPTION / TECHNIQUE: The patient was seen and identified in the preoperative area. Risks, benefits, complications, and alternatives were discussed with the patient. The patient agreed to proceed with the procedure and signed the consent. IV was started, and vital signs were stable. Patient was taken to the OR and time out was completed. The patient was placed in the prone position on procedure table and a pillow was placed under the abdomen to reduce lumbar lordosis. The lumbosacral area was prepped and draped in the usual sterile fashion. Critical pause was taken. Vital signs were closely monitored during the procedure. Conscious sedation was used during the procedure to decrease patient s anxiety. Using oblique fluoroscopy, the chin of the ``Magno dog at right L4 5 level was identified, and the skin and deeper tissues just below was localized with 1% lidocaine. Subsequently, a 22-gauge 3.5-inch spinal needle was advanced under a tunneled view fluoroscopic guidance just underneath the chin of the ``Magno dog at the right L4 5. Under lateral fluoroscopy, the needle was then advanced to the posterior border of the right L4 5 interforaminal space. After negative aspiration of CSF and blood and with no paresthesias, 1 mL Isovue 200 contrast dye was injected excellent epidurogram and outlining of the nerve root Subsequently, 3 mL of block solution containing 40 mg Depo-medrol and 2 mL of Lidocaine 1% was injected. Needle was removed and the same procedure was repeated at the right L5-S1 level . At the end of the procedure, skin was cleansed, and bandages were applied. COMPLICATIONS:none DISPOSITION / PLANS: The patient was placed in a supine position and transferred to the recovery area in a stable condition for observation. There was no evidence of lower extremity motor or sensory deficit after the procedure. Patient was discharged from the recovery room after meeting discharge criteria. Home discharge instructions were given to the patient by the staff. The patient was reexamined prior to discharge.
--- NOTE | 2020-01-23 09:22 | FL ---
EXAMINATION TYPE: FL guided pain mgmt statistic DATE OF EXAM: 01/23/2020 CLINICAL HISTORY: Low back pain. TECHNIQUE: Fluoroscopy. COMPARISON: None. FINDINGS: Fluoroscopic guidance was provided during pain relief procedure performed by Dr. Chin . A total of 20 seconds of fluoroscopic time was utilized during the procedure and 3 spot images are acquired. Images acquired shows needle localization at multiple levels of the lumbar spine. IMPRESSION: As Above.
[2020-01-23 09:26] VITALS: BP 124/76; PULSE 78
[2020-01-23] MEDS ORDERED: IV FLUID CONTINUATION 1,000 ML IV ONE (09:26)
== END 2020-01-23 09:50 | disposition home or self-care (01) ==
LOC: ORPAIN 07:28
PROVIDERS: ATTEND Specialist
DX: G89.29 Other chronic pain (principal); M47.26 Other spondylosis with radiculopathy, lumbar region; M51.16 Intervertebral disc disorders with radiculopathy, lumbar region; K21.9 Gastro-esophageal reflux disease without esophagitis; Z90.710 Acquired absence of both cervix and uterus; Z90.49 Acquired absence of other specified parts of digestive tract; Z98.890 Other specified postprocedural states; Z87.891 Personal history of nicotine dependence; Z79.899 Other long term (current) drug therapy; Z88.0 Allergy status to penicillin; Z80.1 Family history of malignant neoplasm of trachea, bronchus and lung
CPT/HCPCS: 64483; 64484; J2250; J1030; J3010; Q9966; 99152

== ENCOUNTER → 2020-03-11 | Outpatient (CLI) | payer OTHER ==
--- NOTE | 2020-03-11 10:09 | CT ---
EXAMINATION TYPE: CT chest w con DATE OF EXAM: 03/11/2020 COMPARISON: PET/CT 09/14/[address] chest 04/08/2015 HISTORY: 54-year-old female, shortness of breath, R06.4, difficulty breathing TECHNIQUE: Contiguous axial scanning of the chest after the administration of 100 mL of Isovue 300. Coronal/sagittal reconstructions performed. CT DLP: 178.4mGycm. Automatic exposure control utilized for a dose reduction. FINDINGS: Heart normal size without pericardial effusion. Aorta normal caliber with bovine configuration to the aortic arch. No thoracic lymphadenopathy by CT size criteria. Redemonstrated 9 mm lateral left upper lobe pulmonary nodule, axial image 21, unchanged from 9. This was smaller and measured 6 mm on 04/08/2015. No new pulmonary nodules. No consolidation or pleural effusion. Mild dependent atelectasis. Visualized upper abdomen shows cholecystectomy clips in the stable 1.2 cm cyst in the periphery of th e right liver lobe. Bones: No osseous destructive process. IMPRESSION: 1. 9 mm left upper lobe pulmonary nodule, stable from 09/14/2019 but slightly larger from 2014 where i t measured 6 mm. Recommend annual surveillance. 2. No acute pulmonary process.
== END | disposition home or self-care (01) ==
LOC: RADCTMAIN 08:41
PROVIDERS: ATTEND Family Medicine
DX: R91.1 Solitary pulmonary nodule (principal)
CPT/HCPCS: 71260; Q9967

== ENCOUNTER → 2020-06-18 | Outpatient (CLI) | payer OTHER ==
--- NOTE | 2020-06-18 12:22 | BMR ---
EXAMINATION TYPE: MR breast BILAT wo/w con DATE OF EXAM: 06/18/2020 COMPARISON: CT chest March 11, 2020. Prior bilateral breast MRI June 09, 2015. Prior PET/CT September 14, 2019. No recent mammogram at this institution. HISTORY: Strong family history of breast cancer. History of bilateral benign breast excisions. CONTRAST: Multiplanar, multisequence images of the breasts were acquired utilizing 5.5 mL intravenous Gadavist gadolinium contrast. TECHNIQUE: A series of fat and water weighted images in the long and short axis views of both breasts are obtained in conjunction with dynamic contrast MRI with subtraction technique. Three-dimensional and additional postprocessing imaging is created on independent workstation and reviewed during offi cial interpretation of this study. FINDINGS: Scattered fibroglandular tissue throughout both breasts is redemonstrated. T2-weighted imag es redemonstrate occasional tiny thin-walled cysts scattered throughout both breasts. T1-weighted im ages show no suspicious fat containing masses. Some benign-appearing bilateral axillary lymph nodes a re seen. No suspicious axillary adenopathy. Dynamic delayed postcontrast imaging shows no suspicious internal mammary adenopathy. With regards to the right breast there is no suspicious skin thickening. No pathologic enhancement or enhancing masses are identified. Chest wall is intact. With regards to the left breast there is no suspicious enhancement or enhancing masses. Chest wall is intact. No suspicious skin thickening noted. Probable incidental 7 mm thin-walled cyst in the right hepatic lobe coronal image 31. IMPRESSION: No MRI evidence for invasive malignancy in either breast. BI-RADS 1 negative study right breast BI-RADS 1 negative study left breast Recommendation: Annual mammogram and MRI surveillance in high risk patient.
== END | disposition home or self-care (01) ==
LOC: RADMRIMAIN 10:18
PROVIDERS: ATTEND Surgery
DX: Z12.31 Encounter for screening mammogram for malignant neoplasm of breast (principal); Z80.3 Family history of malignant neoplasm of breast
CPT/HCPCS: C8937; C8908; A9585; 77049

== ENCOUNTER → 2021-01-16 | Outpatient (CLI) | payer OTHER ==
--- NOTE | 2021-01-18 08:34 | PE ---
EXAMINATION TYPE: PET CT fusion skull to thigh DATE OF EXAM: 01/16/2021 COMPARISON: PET/CT September 14, 2019. Outside chest CT December 03, 2020. HISTORY: Solitary pulmonary nodule, abnormal CT. TECHNIQUE: Following the intravenous administration of 10.705 mCi of F-18 FDG, whole body images are performed from the skull base to the midthigh. Images are reviewed on the computer in the coronal, axial, and sagittal planes. Reconstructed rotating images are created on independent workstation and reviewed on the computer. A localization and attenuation correction CT is performed in conjunction with the PET scan. Blood glucose level equals 92. SCAN: Initial Scan FINDINGS: SKULL BASE AND NECK: No new areas of abnormal hypermetabolic uptake. CHEST, MEDIASTINUM, AND HILAR REGION: Under 4 mm left upper lobe nodule laterally prior PET/CT study axial image 69 not clearly seen on today's study. Stable size inferior a mm left upper lobe nodule th at remains ametabolic axial image 79 unchanged from prior studies.. No areas of abnormal hypermetabol ic nodules or masses. ABDOMEN AND PELVIS: No areas of abnormal hypermetabolic uptake. No adrenal masses. Normal excretion. OSSEOUS STRUCTURES: No areas of abnormal hypermetabolic uptake. OTHER CT: Cholecystectomy clips are again seen. Mild to moderate coronary artery calcification is re demonstrated . Uterus surgically absent. Some facet arthropathy lower lumbar spine. IMPRESSION: Stable 8 to 9 mm lateral inferior left upper lobe nodule, no significant growth or hyperm etabolic uptake from prior PET/CT September 14, 2019. No areas of growing nodularity or abnormal hyperm etabolic uptake to suggest malignancy.
== END ==
LOC: RADPETMAIN 11:52
PROVIDERS: ATTEND Family Medicine
DX: R91.1 Solitary pulmonary nodule (principal)
CPT/HCPCS: 78815; A9552

== ENCOUNTER → 2021-06-08 | Outpatient (CLI) | payer OTHER ==
--- NOTE | 2021-06-11 14:24 | MM ---
Reason for exam: screening (asymptomatic). Last mammogram was performed 19 years and 7 months ago. History: Patient is postmenopausal. Family history of premenopausal breast cancer in mother and breast cancer in cousin. Benign excisional biopsy of both breasts. Took hormonal contraceptives for 8 years. Physical Findings: A clinical breast exam by your physician is recommended on an annual basis and results should be correlated with mammographic findings. MG Screening Mammo w CAD Bilateral CC and MLO view(s) were taken. Prior study comparison: June 18, 2020, bilateral MR breast bilat wo/w con. June 14, 2019, mammogram, performed at [facility]. There are scattered fibroglandular densities. No significant changes when compared with prior studies. ASSESSMENT: Benign, BI-RAD 2 RECOMMENDATION: Routine screening mammogram of both breasts in 1 year.
== END | disposition home or self-care (01) ==
LOC: RADMAMWWP 16:35
PROVIDERS: ATTEND Surgery
DX: Z12.31 Encounter for screening mammogram for malignant neoplasm of breast (principal); Z78.0 Asymptomatic menopausal state; Z80.3 Family history of malignant neoplasm of breast
CPT/HCPCS: 77067

== ENCOUNTER → 2021-12-16 | Outpatient (CLI) | payer OTHER ==
--- NOTE | 2021-12-16 13:47 | CT ---
EXAMINATION TYPE: CT chest w con DATE OF EXAM: 12/16/2021 COMPARISON: 03/11/2020, PET/CT 09/14/2019 HISTORY: Lung nodule CT DLP: 456 mGycm Automated exposure control for dose reduction was used. CONTRAST: CT scan of the chest is performed with IV Contrast, patient injected with 100 ml mL of Isovue 300. FINDINGS: LUNGS: Stable smoothly marginated nodule left upper lobe measuring 8.3 mm versus 8.7 mm previously. N o new nodules identified. The lungs are otherwise clear. No infiltrate or atelectasis. No pleural eff usion. MEDIASTINUM: There are no greater than 1 cm hilar or mediastinal lymph nodes. No pericardial effusi on is seen. Thoracic aorta is of normal caliber. The heart is not enlarged. UPPER ABDOMEN: No significant abnormality appreciated. OTHER: No additional significant abnormality is seen. IMPRESSION: Stable smoothly marginated pulmonary nodule left upper lobe over 3 years is presumed benign.
== END | disposition home or self-care (01) ==
LOC: RADCTMAIN 11:58
PROVIDERS: ATTEND Thoracic Surgery (Cardiothoracic Vascular Surgery)
DX: R91.1 Solitary pulmonary nodule (principal)
CPT/HCPCS: 71260; Q9967

== ENCOUNTER → 2022-06-16 | Outpatient (CLI) | payer OTHER ==
--- NOTE | 2022-06-17 18:20 | MM ---
Reason for Exam: Screening (asymptomatic). Last mammogram was performed 1 year(s) and 1 month(s) ago. Patient History: Menarche at age 14. First Full-Term at age 28. Left ovary removed at age 45. Right ovary removed at age 45. Hysterectomy at age 45. Postmenopausal. Patient used Hormonal Contraceptives for 8 years. Bilateral Benign Excisional Biopsy. Maternal cousin had breast cancer. Mother had breast cancer under age 50. Risk Values: Nini 5 year model risk: 2.6%. NCI Lifetime model risk: 18.4%. Prior Study Comparison: 10/25/2001 Bilateral Screening Mammogram, [facility]. 06/14/2019 Screening Mammogram, [facility]. 06/08/2021 Bilateral Screening Mammogram, [facility]. Tissue Density: There are scattered fibroglandular densities. Findings: Analyzed By CAD. Unchanged focus of dystrophic calcification 12:00 left breast. Just posterior to this on the CC view, central nodularity has increased. Otherwise, no significant change from prior exams. Overall Assessment: Incomplete: need additional imaging evaluation, BI-RAD 0 Management: Special View Mammogram of the left breast. To include spot 3-D CC, 3-D CC rolled, and 3-D lateral views. Targeted left breast ultrasound if any persisting after malady. Electronically signed and approved by: Martha Portillo M.D. Radiologist
== END | disposition home or self-care (01) ==
LOC: RADMAMWWP 15:57
PROVIDERS: ATTEND Surgery
DX: Z12.31 Encounter for screening mammogram for malignant neoplasm of breast (principal); Z80.3 Family history of malignant neoplasm of breast; Z78.0 Asymptomatic menopausal state
CPT/HCPCS: 77067

== ENCOUNTER → 2022-06-23 | Outpatient (CLI) | payer OTHER ==
--- NOTE | 2022-06-23 10:29 | MM ---
Reason for Exam: Additional evaluation requested from abnormal screening. Last screening mammogram was performed less than 1 month ago. Patient History: Menarche at age 14. First Full-Term at age 28. Left ovary removed at age 45. Right ovary removed at age 45. Hysterectomy at age 45. Postmenopausal. Patient used Hormonal Contraceptives for 8 years. Bilateral Benign Excisional Biopsy. Maternal cousin had breast cancer. Mother had breast cancer under age 50. Risk Values: Nini 5 year model risk: 2.6%. NCI Lifetime model risk: 18.4%. Prior Study Comparison: 06/14/2019 Screening Mammogram, [facility]. 06/08/2021 Bilateral Screening Mammogram, [facility]. 06/16/2022 Bilateral MG 3D screening mammo w/cad, [facility]. Tissue Density: Left: There are scattered fibroglandular densities. Findings: Analyzed By CAD. On compression there may be a vague partially obscured rounded density in the posterior left breast. However, I'm tomographic images and additional imaging persistent suspicious density is not identified. Findings may be summation, follow-up exam in 6 months is recommended rest. Overall Assessment: Probably benign, BI-RAD 3 Management: Diagnostic Mammogram of the left breast in 6 months. A negative mammogram report should not preclude additional follow up of suspicious palpable abnormalities. Patient should continue monthly self breast exam. A clinical breast exam by your physician is recommended on an annual basis and results should be correlated with mammographic findings. Electronically signed and approved by: Florin Redd D.O. Radiologis
== END | disposition home or self-care (01) ==
LOC: RADMAMWWP 09:59
PROVIDERS: ATTEND Surgery
DX: R92.8 Other abnormal and inconclusive findings on diagnostic imaging of breast (principal); Z78.0 Asymptomatic menopausal state; Z80.3 Family history of malignant neoplasm of breast
CPT/HCPCS: 77065

== ENCOUNTER → 2022-07-17 | Outpatient (CLI) | payer OTHER ==
--- NOTE | 2022-07-20 07:38 | BMR ---
EXAMINATION TYPE: MR breast BILAT wo/w con DATE OF EXAM: 07/17/2022 COMPARISON: Prior MRI bilateral breasts June 18, 2020 BI-RADS 1. Prior screening mammogram June 16, 2022 BI-RADS 0. Diagnostic left breast mammogram June 23, 2022 BI-RADS 3 HISTORY: Family hx breast cancer, abnormal mamm. TECHNIQUE: A series of fat and water weighted images in the long and short axis views of both breasts are obtained in conjunction with dynamic contrast MRI with subtraction technique. The patient was i njected with 7 mL intravenous Gadavist gadolinium contrast. Three-dimensional and additional postpr ocessing imaging is created on independent workstation and reviewed during official interpretation of this study. FINDINGS: Scattered fibroglandular tissue throughout both breasts is redemonstrated. T2-weighted imag es redemonstrate occasional no focal fluid collection or significant cystic lesions in either breast. T1-weighted images show no suspicious fat containing masses. Some benign-appearing bilateral axillar y lymph nodes are seen. No suspicious axillary adenopathy. Dynamic postcontrast imaging shows mild sy mmetric background enhancement. Dynamic delayed postcontrast imaging shows no suspicious internal go heike adenopathy. With regards to the right breast there is no suspicious new skin thickening. No pathologic enhancemen t or new enhancing masses are identified. Chest wall remains intact. With regards to the left breast there is no suspicious enhancement or new enhancing masses. Chest wal l remains intact. No suspicious skin thickening noted. No suspicious abnormality to correspond to are a of concern on recent mammogram. IMPRESSION: No MRI evidence for invasive malignancy in either breast. BI-RADS 1 negative study right breast BI-RADS 1 negative study left breast Recommendation: Patient due for annual bilateral breast mammogram June 2023. Advise annual MRI surv eillance in high risk patient.
== END | disposition home or self-care (01) ==
LOC: RADMRIMAIN 11:33
PROVIDERS: ATTEND Surgery
DX: Z12.31 Encounter for screening mammogram for malignant neoplasm of breast (principal); Z80.3 Family history of malignant neoplasm of breast
CPT/HCPCS: C8908; A9585; 77049

== ENCOUNTER → 2022-08-13 | Outpatient (CLI) | payer OTHER ==
--- NOTE | 2022-08-14 11:42 | PE ---
EXAMINATION TYPE: PET CT fusion skull to thigh DATE OF EXAM: 08/13/2022 COMPARISON: Prior PET/CT January 16, 2021 and older studies. HISTORY: Solitary pulmonary nodule TECHNIQUE: Following the intravenous administration of 12.35 mCi of F-18 FDG, whole body images are performed from the skull base to the midthigh. Images are reviewed on the computer in the coronal, a xial, and sagittal planes. Reconstructed rotating images are created on independent workstation and reviewed on the computer. A localization and attenuation correction CT is performed in conjunction with the PET scan. Blood glucose level equals 92 SCAN: Subsequent Scan FINDINGS: SKULL BASE AND NECK: No new areas of abnormal hypermetabolic uptake. CHEST, MEDIASTINUM, AND HILAR REGION: Fairly stable size inferolateral 7-8 mm left upper lobe nodule that remains ametabolic axial image 70 on current study not significantly changed from prior studies. No areas of abnormal hypermetabolic nodules or masses. ABDOMEN AND PELVIS: No new areas of abnormal hypermetabolic uptake. No adrenal masses. Normal excreti on is redemonstrated. OSSEOUS STRUCTURES: No new areas of abnormal hypermetabolic uptake. OTHER CT: Cholecystectomy clips are again seen. Mild to moderate coronary artery calcification is re demonstrated . Uterus surgically absent. Some facet arthropathy lower lumbar spine is again seen. IMPRESSION: Stable 8 mm lateral inferior left upper lobe nodule, no significant growth or hypermetabo lic uptake from prior PET/CT September 14, 2019. No areas of growing nodularity or abnormal hypermetabo lic uptake to suggest malignancy.
== END | disposition home or self-care (01) ==
LOC: RADXRMAIN 12:30
PROVIDERS: ATTEND Family Medicine
DX: R91.1 Solitary pulmonary nodule (principal)
CPT/HCPCS: 78815; A9552

== ENCOUNTER → 2023-03-30 | Outpatient (CLI) | payer SELFPAY ==
--- NOTE | 2023-03-30 08:04 | US ---
EXAMINATION TYPE: US abdomen complete DATE OF EXAM: 03/30/2023 COMPARISON: CT CLINICAL INDICATION: Female, 57 years old with history of R10.0 R11.10; Pt states vomiting bile, most ly in AM/ GB removed TECHNIQUE: Multiple sonographic images of the abdomen are obtained. FINDINGS: EXAM MEASUREMENTS: Liver Length: 15.7 cm CBD: 0.5 cm Spleen: 8.1 cm Right Kidney: 10.2 x 3.4 x 4.9 cm Left Kidney: 10.1 x 3.5 x 3.9 cm Pancreas: wnl Liver: wnl Gallbladder: Surgically absent Evidence for sonographic Velez's sign: No CBD: wnl Spleen: wnl Right Kidney: No evidence of hydro Left Kidney: No evidence of hydro, difficult to visualize due to overlying bowel gas Upper IVC: wnl Abd Aorta: wnl The liver is homogenous. The intrahepatic portion of the IVC and proximal abdominal aorta are within normal limits. Common bile duct is unremarkable. The visualized portions of the pancreas are homoge nous. The spleen is unremarkable. Kidneys are symmetric and free of hydronephrosis. No renal lesio ns are seen. IMPRESSION: No evidence for acute process.
== END | disposition home or self-care (01) ==
LOC: RADUSWWP 06:41
PROVIDERS: ATTEND Family Medicine
DX: R11.2 Nausea with vomiting, unspecified (principal); R68.89 Other general symptoms and signs; R53.1 Weakness; R20.0 Anesthesia of skin
CPT/HCPCS: 76700

== ENCOUNTER → 2023-04-18 | Outpatient (CLI) | payer OTHER ==
--- NOTE | 2023-04-18 15:51 | US ---
EXAMINATION TYPE: US carotid duplex BILAT DATE OF EXAM: 04/18/2023 COMPARISON: NONE CLINICAL INDICATION: Female, 57 years old with history of R53.1 WEAKNESS, R20.0 NUMBNESS; Weakness an d numbness. Patient states she feels like she gets vomit in her throat. TECHNIQUE: Carotid duplex ultrasound examination. Indirect Doppler criteria was utilized. FINDINGS: EXAM MEASUREMENTS: RIGHT: Peak Systolic Velocity (PSV) cm/sec ----- Right CCA: 103.0 ----- Right ICA: 125.0 ----- Right ECA: 217.0 ICA/CCA ratio: 1.2 RIGHT: End Diastole cm/sec ----- Right CCA: 32.5 ----- Right ICA: 41.6 ----- Right ECA: 33.2 LEFT: Peak Systolic Velocity (PSV) cm/sec ----- Left CCA: 97.0 ----- Left ICA: 116.0 ----- Left ECA: 93.5 ICA/CCA ratio: 1.2 LEFT: End Diastole cm/sec ----- Left CCA: 32.7 ----- Left ICA: 53.9 ----- Left ECA: 20.8 VERTEBRALS (direction of flow): Right Vertebral: Antegrade Left Vertebral: Antegrade Rhythm: Arrhythmia EMPLOYMENT SERVICES DIRECTOR NOTES: No plaque or wall thickening. Elevated right ECA velocity. IMPRESSION: 1. No ultrasound evidence for hemodynamically significant stenosis of the bilateral internal carotid arteries. 2. Mild stenosis at the origin of the right external carotid artery suggested. Criteria for Assigning % of Stenosis / Diameter reduction (Estimation based on the indirect measurements of the internal carotid artery velocities (ICA PSV). 1. Normal (no stenosis)=ICA PSV < 125 cm/s: ratio < 2.0: ICA EDV<40 cm/s. 2. Less than 50% stenosis=ICA PSV < 125 cm/s: ratio < 2.0: ICA EDV<40 cm/s. 3. 50 to 69% stenosis=ICA PSV of 125 to 230 cm/s: ration 2.0 ? 4.0: ICA EDV 40-100 cm/s. 4. Greater than 70% stenosis to near occlusion= ICA PSV > 230 cm/s: ratio > 4.0: ICA EDV > 100 cm/s. 5. Near occlusion= ICA PSV velocities may be low or undetectable: variable ratio and ICA EDV. 6. Total occlusion=unable to detect flow.
== END | disposition home or self-care (01) ==
LOC: RADUSWWP 15:17
PROVIDERS: ATTEND Family Medicine
DX: I65.21 Occlusion and stenosis of right carotid artery (principal); R53.1 Weakness; R68.89 Other general symptoms and signs; R20.0 Anesthesia of skin
CPT/HCPCS: 93880

== ENCOUNTER → 2023-06-27 | Outpatient (CLI) | payer OTHER ==
--- NOTE | 2023-06-27 15:06 | MM ---
Reason for Exam: Additional evaluation requested from prior study. Last screening mammogram was performed 12 month(s) ago. Patient History: Menarche at age 14. First Full-Term at age 28. Left ovary removed at age 45. Right ovary removed at age 45. Hysterectomy at age 45. Postmenopausal. Patient used Hormonal Contraceptives for 8 years. Bilateral Benign Excisional Biopsy. Maternal cousin had breast cancer. Mother had breast cancer under age 50. Risk Values: Inni 5 year model risk: 2.7%. NCI Lifetime model risk: 18.1%. Prior Study Comparison: 10/25/2001 Bilateral Screening Mammogram, [facility]. 06/14/2019 Screening Mammogram, [facility]. 06/18/2020 Bilateral Diagnostic Breast MRI, [facility]. 06/08/2021 Bilateral Screening Mammogram, [facility]. 06/16/2022 Bilateral MG 3D screening mammo w/cad, [facility]. 06/23/2022 Left MG work up mamm w CAD LT, [facility]. 07/17/2022 Bilateral MR breast bilat wo/w con, [facility]. 12/27/2022 Left MG diagnostic mammo LT w CAD, [facility]. Tissue Density: There are scattered fibroglandular densities. Findings: Analyzed By CAD. Benign-appearing calcific dictation the left breast. No new suspicious masses, calcifications or distortions. Overall Assessment: Benign, BI-RAD 2 Management: Screening Mammogram of both breasts in 1 year. Results were given to the patient verbally at the time of exam. Patient should continue monthly self-breast exams. A clinical breast exam by your physician is recommended on an annual basis. This exam should not preclude additional follow-up of suspicious palpable abnormalities. Note on Nini scores and lifetime risk: 1. A Nini score greater than 3% is considered moderate risk. If this is the case, consider specialist referral to assess eligibility for a risk reducing agent. 2. If overall lifetime risk for the development of breast cancer is 20% or higher, the patient may qualify for future screening with alternating mammogram and breast MRI. Electronically signed and approved by: Jermaine Serrano DO
== END | disposition home or self-care (01) ==
LOC: RADMAMWWP 14:42
PROVIDERS: ATTEND Surgery
DX: R92.8 Other abnormal and inconclusive findings on diagnostic imaging of breast (principal); Z78.0 Asymptomatic menopausal state; Z80.3 Family history of malignant neoplasm of breast
CPT/HCPCS: 77062; 77066

== ENCOUNTER → 2023-07-12 | Outpatient (CLI) | payer OTHER ==
--- NOTE | 2023-07-13 09:35 | CT ---
EXAMINATION TYPE: CT chest w con CT DLP: 236.6 mGycm, Automated exposure control for dose reduction was used. DATE OF EXAM: 07/12/2023 5:45 PM COMPARISON: Multiple CT chest with most recent 12/16/2021, PET/CT 08/13/2022. CLINICAL INDICATION:Female, 57 years old with history of R91.1 SOLITARY PULMONARY NODULE; PHH, lung n odule TECHNIQUE: Multiple axial images were obtained through the chest following the administration of 100 cc of Isovue 300. . Coronal and sagittal reformats reviewed. FINDINGS: LUNGS/ PLEURA: No pleural effusion, pneumothorax, or focal consolidation. Stable lateral left upper l obe 8.8 mm pulmonary nodule when measuring with similar technique from previous exam (series 5, image 19) however this has increased in size compared to examination when it measured 5.4 mm. No new pulmo nary nodules. AIRWAY: Patent and unremarkable.. HEART: Size within normal limits. No pericardial effusion. Mild coronary artery calcifications. MEDIASTINUM: No gross evidence of adenopathy. VASCULATURE: No aortic aneurysm. MUSCULOSKELETAL: No acute osseous abnormalities SOFT TISSUES/LYMPH NODES: Unremarkable. LOWER NECK: No significant findings. UPPER ABDOMEN: No significant findings. IMPRESSION: Stable left upper lobe 8.8 mm pulmonary nodule from most recent examination. This has increased in si ze and compared to 2015 exam. No FDG avidity on prior PET/CT. Cannot exclude slow-growing low-grade p rimary lung neoplasm. Annual surveillance and/or tissue sampling is recommended.
== END | disposition home or self-care (01) ==
LOC: RADCTMAIN 16:47
PROVIDERS: ATTEND Family Medicine
DX: R91.1 Solitary pulmonary nodule (principal)
CPT/HCPCS: 71260; Q9967

== ENCOUNTER → 2024-03-19 | Outpatient (CLI) | payer OTHER ==
--- NOTE | 2024-03-19 20:25 | MR ---
EXAMINATION TYPE: MR lumbar spine wo con DATE OF EXAM: 03/19/2024 COMPARISON: 02/13/2015 HISTORY: Low back pain that radiates down right leg. TECHNIQUE: Multiplanar, multisequence images of the lumbar spine were acquired without IV contrast. Findings: The lumbar vertebral segments are normal in height and alignment and there is no fracture or subluxat ion. There is mild degenerative disease at the L2-3, L3-4 and L4-5 levels where there is mild disc space n arrowing, circumferential disc bulge and spondylosis. There is a mild eccentric disc bulge at the L4- 5 level to the right of midline mildly compromising the right lateral recess. There is no spinal stenosis. There is mild facet arthropathy in the lower lumbar spine. There is mild neural foraminal stenosis at the L4-5 level on the right secondary to disc bulge. IMPRESSION: 1. Mild progressive degenerative disease at the L2-3, L3-4 and L4-5 levels. 2. Development of mild neuroforaminal stenosis at the L4-5 level on the right. 3. No spinal stenosis.
== END | disposition home or self-care (01) ==
LOC: RADMRIMAIN 19:17
PROVIDERS: ATTEND Orthopaedic Surgery
DX: M51.36 Other intervertebral disc degeneration, lumbar region (principal); M47.816 Spondylosis without myelopathy or radiculopathy, lumbar region; M99.73 Connective tissue and disc stenosis of intervertebral foramina of lumbar region
CPT/HCPCS: 72148

== ENCOUNTER → 2024-07-23 | Outpatient (CLI) | payer OTHER ==
--- NOTE | 2024-07-23 08:13 | MM ---
Reason for Exam: Follow-up at short interval from prior study. Last mammogram was performed 1 year(s) and 1 month(s) ago. Patient History: Menarche at age 14. First Full-Term at age 28. Left ovary removed at age 45. Right ovary removed at age 45. Hysterectomy at age 45. Postmenopausal. Patient used Hormonal Contraceptives for 8 years. Bilateral Benign Excisional Biopsy. Maternal cousin had breast cancer. Mother had breast cancer under age 50. Risk Values: Nini 5 year model risk: 2.9%. NCI Lifetime model risk: 17.7%. Prior Study Comparison: 10/25/2001 Bilateral Screening Mammogram, [facility]. 06/14/2019 Screening Mammogram, [facility]. 06/18/2020 Bilateral Diagnostic Breast MRI, [facility]. 06/08/2021 Bilateral Screening Mammogram, [facility]. 06/16/2022 Bilateral MG 3D screening mammo w/cad, [facility]. 06/23/2022 Left MG work up mamm w CAD LT, [facility]. 07/17/2022 Bilateral MR breast bilat wo/w con, [facility]. 12/27/2022 Left MG diagnostic mammo LT w CAD, [facility]. 06/27/2023 Bilateral MG 3D diag mammo w/cad BRIAN, [facility]. Tissue Density: The breasts are heterogeneously dense, which may obscure small masses. Findings: Analyzed By CAD. No mass or distortion. No suspicious calcifications. Overall Assessment: Benign, BI-RAD 2 Management: Screening Mammogram of both breasts in 1 year. . Results were given to the patient verbally at the time of exam. Patient should continue monthly self-breast exams. A clinical breast exam by your physician is recommended on an annual basis. This exam should not preclude additional follow-up of suspicious palpable abnormalities. Note on Nini scores and lifetime risk: 1. A Nini score greater than 3% is considered moderate risk. If this is the case, consider specialist referral to assess eligibility for a risk reducing agent. 2. If overall lifetime risk for the development of breast cancer is 20% or higher, the patient may qualify for future screening with alternating mammogram and breast MRI. Electronically signed and approved by: Randy Henderson M.D. Radiologis
== END | disposition home or self-care (01) ==
LOC: RADMAMWWP 06:54
PROVIDERS: ATTEND Surgery
DX: R92.8 Other abnormal and inconclusive findings on diagnostic imaging of breast
CPT/HCPCS: 77062; 77066

== ENCOUNTER 2024-07-25 09:37 | Day surgery (SDC) | payer OTHER ==
--- NOTE | 2024-07-24 13:22 | HP ---
HISTORY AND PHYSICAL DATE OF SCHEDULED SURGERY: 07/25/2024. HISTORY OF PRESENT ILLNESS: Renetta Diego is a 58-year-old patient who was seen with progressive right knee pain. We discussed options regarding treatment. She elected to proceed with right knee arthroscopy. Consent was obtained. PAST MEDICAL HISTORY: Hypertension, hyperlipidemia, and gastroesophageal reflux disease. SURGICAL HISTORY: Knee arthroscopy. DAILY MEDICATIONS: 1. Prilosec. 2. Gabapentin. 3. Hydrocodone. 4. Crestor. ALLERGIES: Penicillin. SOCIAL HISTORY: She denies current tobacco use. PHYSICAL EVALUATION OF THE LEFT KNEE: Range of motion is negative 2 to 120 degrees. Mild effusion. Tenderness to medial joint line. Positive medial Rocío's. Ligaments stable. Hip rotation without pain. Distal neurovascular exam is intact. IMAGING: Right knee radiographs revealed no osseous abnormality. MRI right knee revealed probable lateral meniscal tear as well as a full-thickness cartilage loss along the medial femoral condyle. IMPRESSION: Internal derangement right knee with osteochondral defect, medial femoral condyle, and possible lateral meniscal tear. PLAN: Right knee arthroscopy with microfracture medial femoral condyle, possible partial lateral meniscectomy and debridement. MMODL / IJN: [id number] /
[~2024-07-25 09:37] MED LIST changes: -LACTATED RINGERS 1,000 ML IV SCH; +LIDOCAINE 1% (10MG/ML) FOR IV START INTRADERMA PRN; +MIDAZOLAM 2 MG/2 ML VIAL IV PRN; +fentaNYL (PF) 50 MCG/ML 2 ML AMP IVP PRN
[2024-07-25] MEDS: IV FLUID CONTINUATION 1,000 ML IV ONE (09:53)
[2024-07-25] MEDS: ONDANSETRON 4 MG/2 ML VIAL IVP ONE (10:05)
[2024-07-25] MEDS: DEXAMETHASONE SOD PHOSPHATE 4 MG/ML 1 ML VIAL IV ONE (10:05)
[2024-07-25] MEDS: LACTATED RINGERS 1,000 ML IV SCH (10:06)
[2024-07-25] MEDS ORDERED: LIDOCAINE 1% INJ 10MG/ML (20 ML MDV) ONE (11:34)
[2024-07-25] MEDS ORDERED: PROPOFOL 10 MG/ML 20 ML VIAL IV ONE (11:34)
[2024-07-25] MEDS ORDERED: fentaNYL (PF) 50 MCG/ML 2 ML AMP ONE (11:34)
[2024-07-25] MEDS ORDERED: MIDAZOLAM 2 MG/2 ML VIAL ONE (11:34)
[2024-07-25] MEDS ORDERED: KETOROLAC 15 MG/ML 1 ML VIAL ONE (11:34)
[2024-07-25] MEDS: LACTATED RINGERS 1,000 ML IV ONE ×2 (11:44→12:05)
[2024-07-25] MEDS: BUPIVACAINE (PF) 0.25% 30 ML VIAL SQ ONE (11:45)
[2024-07-25] MEDS: HYDROmorphone 0.5 MG/0.5 ML SYRINGE IVP PRN (12:21)
--- NOTE | 2024-07-25 12:21 | P.OP ---
Date of Procedure: 07/25/24 Preoperative Diagnosis: Internal derangement right knee Postoperative Diagnosis: 1. Tear medial and lateral meniscus right knee 2. Grade IV chondromalacia medial femoral condyle right knee 3. Reactive synovitis medial, lateral and suprapatellar compartments right knee 4. Grade II/III chondromalacia patella right knee Procedure(s) Performed: 1. Arthroscopic partial medial and lateral meniscectomy right knee 2. Arthroscopic microfracture medial femoral condyle right knee 3. Arthroscopic partial synovectomy medial, lateral and suprapatellar compartments right knee 4. Arthroscopic chondroplasty patella right knee Anesthesia: TALIAA, local Surgeon: Jonathan Dior Estimated Blood Loss (ml): 6 Pathology: none sent Condition: stable Disposition: PACU Indications for Procedure: 58-year-old patient seen with progressive right knee pain. After having treatment options discussed, she elected to proceed with arthroscopy. Operative Findings: See description of procedure Description of Procedure: Patient was taken to the operative suite. Patient underwent a general anesthetic by the department of anesthesia. Patient was given preoperative antibiotics. The right lower extremity was placed in a well-padded arthroscopic leg gutiérrez. The right leg was prepped and draped in the normal sterile orthopedic fashion. A lateral parapatellar and suprapatellar incision was made. Trochars were inserted. Arthroscopy was initiated. Suprapatellar pouch revealed diffuse thick reactive synovitis. The patellofemoral joint appeared to articulate congruently. There was grade II/III chondromalacia of the patella with some osteochondral flap tears present. The scope was guided into the medial gutter. No loose bodies or plica were identified. The scope was then guided into the medial compartment. A medial parapatellar incision was made. Trocar inserted followed by probe. There was a radial tear posterior horn medial meniscus. There was an area of grade IV chondromalacia involving the weightbearing surface medial femoral condyle measuring just over a centimeter. There was thick reactive synovitis anteriorly. I performed a partial medial meniscectomy getting down to stable meniscal tissue. I performed a partial synovectomy decompressing the thick reactive synovitis. I introduced a microfracture awl and I performed a microfracture to that area of exposed bone medial femoral condyle penetrating the bone with resultant bleeding at the microfracture site. The residual meniscus was probed and was found to be stable. The residual osteochondral surface was stable. There was good decompression of the synovitis. Scope and probe were then guided into the intercondylar notch. Cruciates were identified, probed and found to be stable. The scope and probe were then guided into lateral compartment. There was a radial tear involving the mid body and posterior horns of the lateral meniscus. There were grade II chondromalacia changes involving the lateral tibial plateau without significant tearing. There was thick reactive synovitis anteriorly. I performed a partial lateral meniscectomy getting down to stable meniscal tissue. I performed a partial synovectomy decompressing the reactive synovitis. The residual meniscus was stable. There was good decompression of the synovitis. The scope was in guided back into the suprapatellar compartment. I introduced a motorized shaver into the suprapatellar compartment. I performed a partial synovectomy. The shaver was now removed. There was good decompression of the synovitis. I now took 1 more look around the entire knee, no residual debris. Instruments were now removed from the joint. The joint was infiltrated with .25% Marcaine. Steri-Strips were applied to the portal sites. Sterile dressings were applied. The patient was placed into a JOSE JUAN hose. No tourniquet was utilized. The patient was awakened, transferred to a bed and taken to recovery stable satisfactory condition.
[2024-07-25 12:26] VITALS: TEMP 97.4
[2024-07-25] MEDS: droPERidol 5 MG/2 ML VIAL IVP ONE (13:07)
[2024-07-25 13:33] VITALS: RESP 18
[2024-07-25 13:59] VITALS: BP 148/87; PULSE 85
== END 2024-07-25 14:21 | disposition home or self-care (01) ==
LOC: OR 09:37
PROVIDERS: ATTEND Orthopaedic Surgery
DX: S83.281A Other tear of lateral meniscus, current injury, right knee, initial encounter (principal); S83.241A Other tear of medial meniscus, current injury, right knee, initial encounter; E78.5 Hyperlipidemia, unspecified; M22.41 Chondromalacia patellae, right knee; M65.161 Other infective (teno)synovitis, right knee; I10 Essential (primary) hypertension; K21.9 Gastro-esophageal reflux disease without esophagitis; Z88.0 Allergy status to penicillin; Z79.899 Other long term (current) drug therapy; X58.XXXA Exposure to other specified factors, initial encounter